=== PATIENT | male | born 1960 | race Caucasian/White ===

== ENCOUNTER 2018-01-17 13:37 | Observation (INO) ==
[2018-01-17] MEDS ORDERED: Naloxone 0.4 MG/ML INJ IVP PRN (14:07)
[2018-01-17] MEDS ORDERED: Acetaminophen 325 MG TABLET PO PRN (14:07)
[2018-01-17] MEDS ORDERED: *HR* Promethazine 25 MG/ML VIAL IVP PRN (14:07)
[2018-01-17] MEDS ORDERED: Ondansetron 4 MG/2 ML VIAL IVP PRN (14:07)
[2018-01-17] MEDS ORDERED: *HR* HYDROcodone/Acet 5/325 mg TABLET PO PRN (14:07)
[2018-01-17] MEDS ORDERED: Mag Hydrox/Al Hydrox/Simeth 30 ML UDC PO PRN (14:07)
--- NOTE | 2018-01-17 14:09 | Emergency Department Note ---
[facility]position [facility] Care Provider[facility] - Syncope HPI - General Chief Complaint: ED General Medical Stated Complaint: [facility] Time Seen by Provider: 01/17/18 13:43 Source: patient, EMS Limitations: no limitations Nursing Notes Reviewed: Yes Vital Signs Reviewed: Yes - History of Present Illness HPI Narrative: 57 year old male with PMH of CAD s/p 2 stents, HTN, COPD, and anxiety presents to the ED via EMS from the [place] for concern about CVA. He reports he was walking and began to feel dizzy and reported that his left hand was tingling. This episode lasted about 10 minutes and then resolved. He was evaluated at at the [place] and was hypotensive at 92/58. CT showed small lacunar infarcts of undeterminant age, so he was sent to [facility] for further evaluation. He denies fevers, chills, headache, vision changes, dysarthria, dysphagia, chest pain, palpitations, dyspnea, abdominal pain, weakness, numbness, tingling, or difficulty with gait. - Related Data Previous Rx's Medication Instructions Recorded Hydrocodone/Acetaminophen [[place] 1 tab PO Q4H PRN #15 tab 07/17/16 5-325 Tablet] Allergies Allergy/AdvReac Type Severity Reaction Status Date / Time Penicillins AdvReac Hives Verified 07/17/16 21:38 Past Medical History - Past Medical History Medical history: Reports: COPD, coronary artery disease, hypertension, myocardial infarction Surgical history: Reports: angioplasty/stent Psychiatric history: Reports: anxiety, bipolar, depression, PTSD - Social History Smoking Status: Current every day smoker Smokeless Tobacco Status: No Alcohol use: Reports: none Drug use: Reports: none Physical Exam - General Limitations: no limitations General appearance: alert, in no apparent distress Course Vital Signs Temperature 97.8 F 01/17/18 13:39 Pulse Rate 84 01/17/18 13:39 Respiratory Rate 17 01/17/18 13:39 Blood Pressure 136/82 01/17/18 13:39 O2 Sat by Pulse Oximetry 97 01/17/18 13:39 Temperature 97.8 F 01/17/18 13:39 Pulse Rate 84 01/17/18 13:39 Respiratory Rate 17 01/17/18 13:39 Blood Pressure 136/82 01/17/18 13:39 O2 Sat by Pulse Oximetry 97 01/17/18 13:39 Oxygen Delivery Oxygen Delivery Room Air
--- NOTE | 2018-01-17 14:20 | Emergency Department Note ---
Disposition Clinical Impression: Near syncope TIA (transient ischemic attack) Qualifiers: Qualified Code(s): G45.9 - Disposition: Admitted As Inpatient Neuro HPI - General Chief Complaint: ED General Medical Stated Complaint: [facility] Time Seen by Provider: 01/17/18 13:43 Source: patient, EMS Mode of arrival: EMS Limitations: no limitations Nursing Notes Reviewed: Yes Vital Signs Reviewed: Yes - History of Present Illness HPI Narrative: 57 year old male with PMH of CAD s/p 2 stents, HTN, COPD, and anxiety presents to the ED via EMS from the [place] for concern about CVA. He reports he was walking and began to feel dizzy and reported that his left hand was tingling. This episode lasted about 10 minutes and then resolved. He was evaluated at at the [place] and was hypotensive at 92/58. CT showed small lacunar infarcts of undeterminant age, so he was sent to [facility] for further evaluation. The patient states these lacunar infarcts have been there on previous images in the past, but he is unable to recall where or when those images were take. He denies fevers, chills, headache, vision changes, dysarthria, dysphagia, chest pain, palpitations, dyspnea, abdominal pain, weakness, numbness, tingling, or difficulty with gait. - Related Data Allergies/Adverse Reactions: Allergies Allergy/AdvReac Type Severity Reaction Status Date / Time Penicillins AdvReac Hives Verified 07/17/16 21:38 Review of Systems: As Per HPI Past Medical History - Past Medical History Medical history: Reports: COPD, coronary artery disease, hypertension, myocardial infarction Surgical history: Reports: angioplasty/stent Psychiatric history: Reports: anxiety, bipolar, depression, PTSD - Social History Smoking Status: Current every day smoker Smokeless Tobacco Status: No Alcohol use: Reports: none Drug use: Reports: none Physical Exam - General Limitations: no limitations General appearance: alert, in no apparent distress - Head Head exam: atraumatic - Eye Eye exam: Present: normal appearance, PERRL, EOMI - ENT ENT exam: mucous membranes moist - Chest Chest inspection: Present: normal inspection, symmetric chest wall rise - Respiratory Respiratory exam: Present: wheezes (bilaterally) - Cardiovascular Cardiovascular exam: Present: regular rate, normal rhythm, +S1, +S2 - Abdominal Exam Abdominal exam: Present: soft, Non-Tender, normal bowel sounds - Extremities Exam Extremities exam: Present: normal inspection, normal capillary refill. Absent: pedal edema - Neurological Exam Neurological exam: Present: alert, oriented X3, CN II-XII intact. Absent: motor sensory deficit - Skin Skin exam: Present: warm, dry, intact Course Vital Signs Temperature 97.8 F 01/17/18 13:39 Pulse Rate 84 01/17/18 13:39 Respiratory Rate 17 01/17/18 13:39 Blood Pressure 136/82 01/17/18 13:39 O2 Sat by Pulse Oximetry 97 01/17/18 13:39 Temperature 98.1 F 01/17/18 19:26 Pulse Rate 88 01/17/18 19:26 Respiratory Rate 17 01/17/18 19:26 Blood Pressure 133/74 01/17/18 19:26 O2 Sat by Pulse Oximetry 93 01/17/18 19:26 Oxygen Delivery Oxygen Delivery Room Air Neuro Symptoms/Deficit - MDM Narrative Medical decision making narrative: Labs reviewed from [place] are unremarkable - including CBC, CMP, Troponin. [facility]. ECG in ED shows NSR. CT from [place] shows no intracranial hemorrhage, but shows lacunar infarcts of undeterminant age. The patient's symptoms have resolved now. This episode was likely a TIA or near-syncopal episode. Will admit for further work-up including an MRI. Spoke with admitting hospitalist Dr. Sparrow who accepted the patient. - Lab Data Lab results reviewed: Yes I reviewed the patient's lab results. Lab results narrative: [facility] the [facility] are un[facility] - EKG Data EKG attestation: Yes I reviewed and interpreted this EKG. EKG shows normal: sinus rhythm, axis, intervals, QRS complexes, ST-T waves NIH Stroke Scale - Level of Consciousness LOC: Alert - LOC Questions LOC Questions: Answers both correctly - LOC Commands LOC Commands: Performs both correctly - Best Gaze Best Gaze: Normal - Visual Visual: No visual loss - Facial Palsy Facial Palsy: Minor asymmetry on smiling, flattened nasolabial fold - Motor Arms Motor Arm-Left: No drift for 10 seconds Motor Arm-Right: No drift for 10 seconds - Motor Legs Motor Leg-Left: No drift for 5 seconds Motor Leg-Right: No drift for 5 seconds - Limb Ataxia Limb Ataxia: Normal, No Ataxia - Sensory Sensory: Normal - Best Language Best Language: No aphasia - Dysarthria Dysarthria: Normal - Extinction and Inattention Extinction and Inattention: Normal - NIHSS Total Score NIHSS Total Score: 1 Attestation Statement - Attestation Attestation: I, Manuel Bach, examined this patient and my medical decision-making was reviewed with the AEROLOGIST/[place]/Advanced Practice Nurse/Resident Physician. I agree with the documented findings, disposition and treatment plan as described except to the extent set forth below. 57-year-old male presents emergency Department with concerns of possible TIA versus near syncopal episode. Patient states he was at the [place] when he suddenly became lightheaded, had tingling in the left upper extremity. His BP was checked and returned hypotensive at the [place]. Patient is now back to his baseline and feels significantly improved. Initial troponin negative. EKG showed normal sinus rhythm with a rate of 79 without evidence of STEMI. CT at the [place] showed lacunar infarcts of indeterminate age. Patient believes that these were present on previous exams. Patient will be admitted to hospital for further care and evaluation of possible TIA versus near syncopal event.
[2018-01-17] MEDS ORDERED: Fluticasone Propionate Nasal 50 MCG/SPRAY BOTTLE NS PRN (15:10)
--- NOTE | 2018-01-17 15:47 | Internal Med History&Physical ---
Date of Encounter: 01/17/18 Time of Encounter: 14:30 Assessment and Plan (1) TIA (transient ischemic attack) Current visit: Yes Status: Acute Will place the pt into Tele for observation His symptoms seems to be more like TIA..since his left hand tingling resolved now However since he does have age undetermined lacunar infarcts in CT of head, will get MRI of Brain in AM for further eval Not a candidate for tPA since his symptoms resolved quickly frequent neuro check for now cont home med ASA for now Cont Statin Lipitor 80mg check FLP In AM will check Carotid doppler and 2 D Echo in AM Qualifiers: Qualified Code(s): G45.9 - Transient cerebral ischemic attack, unspecified (2) HTN (hypertension) Current visit: Yes Status: Acute Stable BP cont home meds Qualifiers: Hypertension type: essential hypertension Qualified Code(s): I10 - Essential (primary) hypertension (3) CAD (coronary artery disease) Current visit: Yes Status: Chronic resumed all home meds Qualifiers: Coronary Disease-Associated Artery/Lesion type: [place] artery [place] vs. transplanted heart: [place] heart Associated angina: without angina Qualified Code(s): I25.10 - Atherosclerotic heart disease of [place] coronary artery without angina pectoris (4) HLD (hyperlipidemia) Current visit: Yes Status: Chronic on statin check FLP in AM Qualifiers: Hyperlipidemia type: unspecified Qualified Code(s): E78.5 - Hyperlipidemia , unspecified Internal Medicine - H&P: HPI Chief complaint: Left hand tingling Admitted From: Emergency Dept Plans for Post Hospital Care: Home History of present illness: Mr. Suero is a 57 year old male with PMH of CAD s/p 2 stents, HTN, COPD, and anxiety presents to the ED via EMS from the [place] for concern about CVA. According to the pt this morning suddenly he felt lightheadedness, dizzy and Left had weakness and tingling sensation which lasted for 10 mins. Pt went to an UC at [place] where he was found to have hypotension with BP 92/58. His CT of head showed small lacunar infarcts of undetermined age, so he was sent to [facility] for further evaluation. The patient states these lacunar infarcts have been there on previous images in the past, but he is unable to recall where or when those images were take. He denies fevers, chills, headache, vision changes and dysarthria. Past Med Surg Social Fam HX - Past Medical History Medical history: COPD, coronary artery disease, hypertension, myocardial infarction Psychiatric history: anxiety, bipolar, depression, PTSD - Past Surgical History Surgical History: angioplasty/stent - Social History Smoking Status: Current every day smoker Smokeless Tobacco Status: No Alcohol use: none Drug use: none - Additional Family History Additional family history: Family hsitory reviewed and non contribuitory to current problem. Internal Medicine - H&P: Meds ARIPiprazole [Abilify] 5 mg PO DAILY 01/17/18 [History] Acetaminophen [Non-Aspirin] 650 mg PO QID 01/17/18 [History] Albuterol Sulfate [Albuterol Inhaler] 2 puff IH Q4H 01/17/18 [History] Aspirin [Lo-Dose Aspirin EC] 81 mg PO DAILY 01/17/18 [History] Atenolol [Tenormin] 50 mg PO DAILY 01/17/18 [History] Atorvastatin Calcium 80 mg PO HS 01/17/18 [History] Cholecalciferol (D-3) [Vitamin D] 1,000 unit PO DAILY 01/17/18 [History] Fluticasone Propionate Nasal [Flonase] 1 spr NS HS PRN 01/17/18 [History] Folic Acid 2 mg PO DAILY 01/17/18 [History] GuaiFENesin Liq [Robitussin Liq] 200 mg PO Q6HR 01/17/18 [History] Ipratropium [Atrovent Inhaler] 2 puff IH Q4H 01/17/18 [History] Ketotifen Fumarate [Zaditor] 1 drop OP BID 01/17/18 [History] Loratadine [Allergy Relief] 10 mg PO DAILY 01/17/18 [History] Losartan Potassium [Cozaar] 50 mg PO DAILY 01/17/18 [History] Melatonin [Melatin] 9 mg PO HS 01/17/18 [History] Mometasone Furoate [Asmanex Hfa] 2 puff IH BID 01/17/18 [History] Olodaterol HCl [Striverdi Respimat] 2 puff IH DAILY 01/17/18 [History] Polyvinyl Alcohol [Artificial Tears] 1 drop OP QID 01/17/18 [History] Prazosin HCl [Minipress] 2 mg PO DAILY 01/17/18 [History] Pregabalin [Lyrica] 75 mg PO BID 01/17/18 [History] Sildenafil Citrate [Viagra] 50 mg PO DAILY 01/17/18 [History] Thiamine Mononitrate [Vitamin B-1] 100 mg PO DAILY 01/17/18 [History] Ubidecarenone [Coq10] 50 mg PO DAILY 01/17/18 [History] carBAMazepine [Tegretol] 200 mg PO BID 01/17/18 [History] 3 Allergy/AdvReac Type Severity Reaction Status Date / Time Penicillins AdvReac Hives Verified 07/17/16 21:38 All Systems PM: A 10-system review of systems was performed and is negative for pertinent findings except as documented above in the HPI. Review of systems: All the systems are reviewed everything is benign except the systems and symptoms I mentioned in the history of present illness - Constitutional Vitals: Temp Pulse Resp BP Pulse Ox 97.8 F 84 18 124/83 97 01/17/18 13:39 01/17/18 13:39 01/17/18 15:06 01/17/18 15:06 01/17/18 13:39 General appearance: Present: cooperative, A&O X 3, answers questions appropriately. Absent: no acute distress - Head Head exam: Present: atraumatic, normal inspection - Respiratory Respiratory exam: Present: decreased breath sounds. Absent: respiratory distress, rhonchi, wheezes - Cardiovascular Cardiovascular exam: Present: RRR, +S1, +S2. Absent: tachycardia - GI/Abdominal GI/Abdominal exam: Present: normal bowel sounds, soft. Absent: rebound, rigid, tenderness - Extremities Exam Extremities exam: Absent: calf tenderness, pedal edema, tenderness - Back Exam Back exam: Absent: CVA tenderness (L), CVA tenderness (R) - Neurological Exam Neurological exam: Present: alert, oriented X3 - Psychiatric Psychiatric exam: Present: normal affect, normal mood - Skin Skin exam: Absent: rash
[2018-01-17] MEDS: Nicotine 21 MG PATCH.TD24 TD SCH (17:45)
[2018-01-17] MEDS: Artificial Tears SOLN 15 ML BOTTLE OP SCH ×2 (18:47→20:27)
[2018-01-17] MEDS: Beclomethasone 80mcg MDI IH SCH (20:03)
[2018-01-17] MEDS: (Ketotifen Fumarate [Zaditor] 1 DROP) OP SCH (20:26)
[2018-01-17] MEDS: carBAMazepine 200 MG TABLET PO SCH (20:27)
[2018-01-17] MEDS: Pregabalin 75 MG CAPSULE PO SCH (20:27)
[2018-01-17] MEDS ORDERED: Melatonin 3 MG TABLET PO SCH (21:00)
[2018-01-18 04:36] LABS: Basophils % 0.2 %; Eosinophils # 0.1 K/mcL (0.0-0.6); Eosinophils % 0.7 %; Hematocrit 36.1 % (37.5-50.1); Hemoglobin 12.2 g/dL (12.9-16.9); Immature Granulocytes % 1.5 % (0-4); Immature Platelets 1.8 % (1.1-6.1); Lymphocytes # 2.5 K/mcL (0.6-4.6); Lymphocytes % 20.1 %; Mean Corpuscular HGB Conc 33.8 g/dL (31.6-35.5); Mean Corpuscular Hemoglobin 31.4 pg (28.0-33.3); Mean Corpuscular Volume 92.8 fL (83.0-100.0); Mean Platelet Volume 8.8 fL (9.4-12.4); Monocytes # 1.5 K/mcL (0.0-1.3); Neutrophils # 8.2 K/mcL (1.6-8.9); Nucleated Red Blood Cells 0.2 /100 WBC (0); Platelet Count 306 K/mcL (140-400); Red Blood Count 3.89 M/mcL (4.19-5.50); Red Cell Distribution Width 13.4 % (11.5-14.5); Segmented Neutrophils % 65.5 %
[2018-01-18 04:54] LABS: BUN/Creatinine Ratio 24 (6-26); Blood Urea Nitrogen 21 mg/dL (6-20); Calcium 9.4 mg/dL (8.6-10.3); Carbon Dioxide 26 mEq/L (23-29); Chloride 105 mEq/L (98-107); Chol/HDL Ratio 4.6 (0-4.9); Cholesterol 138 mg/dL (< 200); Glucose 125 mg/dL (70-105); HDL Cholesterol 30 mg/dL (40-59); LDL Cholesterol,Calculated 91 mg/dL (0-99); Osmolality,Calculated 286 (280-300); Potassium 4.1 mEq/L (3.5-5.1); Sodium 136 mEq/L (136-145); Triglycerides 84 mg/dL (< 150); eGFR For African Americans > 60 (> 60); eGFR For Non-African Americans > 60 (> 60)
[2018-01-18] MEDS: Beclomethasone 80mcg MDI IH SCH (07:53)
[2018-01-18] MEDS: carBAMazepine 200 MG TABLET PO SCH (08:44)
[2018-01-18] MEDS: Pregabalin 75 MG CAPSULE PO SCH (08:44)
[2018-01-18] MEDS: Nicotine 21 MG PATCH.TD24 TD SCH (08:46)
[2018-01-18] MEDS: (Ketotifen Fumarate [Zaditor] 1 DROP) OP SCH (08:47)
[2018-01-18] MEDS ORDERED: Folic Acid 1 MG TABLET PO SCH (09:00)
[2018-01-18] MEDS ORDERED: *HR* LORazepam 2 MG/ML VIAL IVP ONE (09:00)
[2018-01-18] MEDS ORDERED: Cholecalciferol (D-3) 1,000 UNIT TABLET PO SCH (09:00)
[2018-01-18] MEDS ORDERED: Thiamine (B-1) 100 MG TABLET PO SCH (09:00)
[2018-01-18] MEDS ORDERED: OLODATEROL HCL IH SCH (09:00)
[2018-01-18] MEDS ORDERED: ARIPiprazole 5 MG TABLET PO SCH (09:00)
[2018-01-18] MEDS ORDERED: Aspirin 81 MG TAB.CHEW PO SCH (09:00)
[2018-01-18] MEDS ORDERED: Loratadine 10 MG TABLET PO SCH (09:00)
[2018-01-18] MEDS ORDERED: (Ubidecarenone [Coq10] 50 MG) PO SCH (09:00)
[2018-01-18] MEDS: Artificial Tears SOLN 15 ML BOTTLE OP SCH ×2 (09:22→12:31)
[2018-01-18 11:32] VITALS: BP 148/98
--- NOTE | 2018-01-18 12:23 | Discharge Summary ---
Date of Encounter: 01/18/18 Time of Encounter: 12:16 - Discharge Diagnosis (1) TIA (transient ischemic attack) Priority: Primary Status: Acute Comments: Possible. Presented with left hand paresthesia that lasted approximately 10 minutes; resolved spontaneously without intervention. TX head CT with undetermined lacunar infarcts. Brain MRI nonacute, no evidence of previous infarcts. TTE with preserved EF, no PFO or cardiac source of emboli. Bilateral carotid Dopplers essentially normal. LDL 91. Continue aggressive risk factor modification. Smoking cessation advised. Increase home ASA to full dose. Recommend follow-up with neurologist cycle and patient will look into neurologist at [place]. Advised to follow-up with reimbursement auditor at [facility] the [place] does not offer neurology services. Qualifiers: Qualified Code(s): G45.9 - Transient cerebral ischemic attack, unspecified (2) HTN (hypertension) Priority: Primary Status: Acute Comments: per hx. BP initially elevated however improved with resuming home medications. Qualifiers: Hypertension type: essential hypertension Qualified Code(s): I10 - Essential (primary) hypertension (3) CAD (coronary artery disease) Priority: Secondary Status: Chronic Comments: per hx. Asymptomatic. Denied chest pain. Continue home ASA, BB, statin. Qualifiers: Coronary Disease-Associated Artery/Lesion type: [place] artery [place] vs. transplanted heart: [place] heart Associated angina: without angina Qualified Code(s): I25.10 - Atherosclerotic heart disease of [place] coronary artery without angina pectoris (4) HLD (hyperlipidemia) Priority: Secondary Status: Chronic Comments: LDL 92; cont home statin Qualifiers: Hyperlipidemia type: unspecified Qualified Code(s): E78.5 - Hyperlipidemia , unspecified Hospital course: Mr. Suero is a 57 year old male with past medical history CAD, hypertension, COPD and seizure disorder who presented to [facility] on 01/17 with complaints of left hand tingling. It was suspected that he suffered a TIA; workup was negative for CVA. Home aspirin was increased to full dose. He was discharged home in stable condition with outpatient follow-up. See assessment and plan for further details. Discharge discussed with: patient - Time Spent with Patient Total time spent providing and/or coordinating discharge services: Less than 30 minutes - Discharge Medications Prescriptions: Aspirin Enteric Coated [Aspirin EC] 325 mg PO DAILY #30 tablet. Home Medications: ARIPiprazole [Abilify] 5 mg PO DAILY 01/17/18 [History] Acetaminophen [Non-Aspirin] 650 mg PO QID 01/17/18 [History] Albuterol Sulfate [Albuterol Inhaler] 2 puff IH Q4H 01/17/18 [History] Atenolol [Tenormin] 50 mg PO DAILY 01/17/18 [History] Atorvastatin Calcium 80 mg PO HS 01/17/18 [History] Cholecalciferol (D-3) [Vitamin D] 1,000 unit PO DAILY 01/17/18 [History] Fluticasone Propionate Nasal [Flonase] 1 spr NS HS PRN 01/17/18 [History] Folic Acid 2 mg PO DAILY 01/17/18 [History] GuaiFENesin Liq [Robitussin Liq] 200 mg PO Q6HR 01/17/18 [History] Ipratropium [ATROVENT Inhaler] 2 puff IH Q4H 01/17/18 [History] Ketotifen Fumarate [Zaditor] 1 drop OP BID 01/17/18 [History] Loratadine [Allergy Relief] 10 mg PO DAILY 01/17/18 [History] Losartan Potassium [Cozaar] 50 mg PO DAILY 01/17/18 [History] Melatonin [Melatin] 9 mg PO HS 01/17/18 [History] Mometasone Furoate [Asmanex Hfa] 2 puff IH BID 01/17/18 [History] Olodaterol HCl [Striverdi Respimat] 2 puff IH DAILY 01/17/18 [History] Polyvinyl Alcohol [Artificial Tears] 1 drop OP QID 01/17/18 [History] Prazosin HCl [Minipress] 2 mg PO DAILY 01/17/18 [History] Pregabalin [Lyrica] 75 mg PO BID 01/17/18 [History] Sildenafil Citrate [Viagra] 50 mg PO DAILY 01/17/18 [History] Thiamine Mononitrate [Vitamin B-1] 100 mg PO DAILY 01/17/18 [History] Ubidecarenone [Coq10] 50 mg PO DAILY 01/17/18 [History] carBAMazepine [Tegretol] 200 mg PO BID 01/17/18 [History] Aspirin Enteric Coated [Aspirin EC] 325 mg PO DAILY #30 tablet. 01/18/18 [Rx] Allergies/Adverse Reactions: 3 Allergy/AdvReac Type Severity Reaction Status Date / Time Penicillins AdvReac Hives Verified 07/17/16 21:38 Date of admission: 01/17/18 14:29 [facility] care [facility]: [facility] Discharging clinician: Marlen Dewitt Anticipated date of discharge: 01/18/18 - Constitutional Vitals: Temp Pulse Resp BP Pulse Ox 98.2 F 95 20 148/98 97 01/18/18 11:32 01/18/18 11:32 01/18/18 11:32 01/18/18 11:32 01/18/18 11:32 General appearance: Present: cooperative, A&O X 3, answers questions appropriately. Absent: no acute distress - Head Head exam: Present: atraumatic, normocephalic - Eye Eye exam: Present: PERRL, conjuntiva pink, sclera anicteric Pupils: Present: PERRL - Neck Neck exam general surgery: Present: supple, trachea midline. Absent: lymphadenopathy - Respiratory Respiratory exam: Present: CTAB. Absent: accessory muscle use, rales, rhonchi, wheezes - Cardiovascular Cardiovascular exam: Present: RRR, +S1, +S2. Absent: diastolic murmur, gallop, rubs, systolic murmur - GI/Abdominal GI/Abdominal exam: Present: normal bowel sounds, soft, no peritoneal signs. Absent: distended, tenderness - Extremities Exam Extremities exam: Present: warm, radial pulses palpable and symmetrical. Absent : calf tenderness, cyanotic, pedal edema - Neurological Exam Neurological exam: Present: CN II-XII intact, oriented X3, no focal deficits. Absent: pronater drift, facial droop, speech deficit - Skin Skin exam: Present: dry, intact - Patient Status Disposition: Home, Self-Care Condition: Good Functional capacity at discharge: independent ambulation Overall status at discharge: patient is back to baseline - Discharge Instructions Instructions: Transient Ischemic Attack (DC), Aspirin (By mouth), How to Stop Smoking (DC) Follow Up With: [facility]Primary Care Provider] - (Call your primary care physician to make a follow-up appointment within 1 week. Recommend following up with neurology; if the [facility] does not have a neurologist and please ask primary care doctor for referral to neurologist at [facility].) - Diet and Activity Activity: increase activity as tolerated Diet: low fat, low cholesterol
--- NOTE | 2018-01-21 06:16 | Electrocardiograph Report ---
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
== END 2018-01-18 16:15 ==
LOC: EMEROO 13:37 → 3BNU 14:29 → INTOOBSV 14:29 → 3BNU 15:36
PROVIDERS: ADMIT Family Medicine; ATTEND Registered Nurse

== ENCOUNTER 2021-04-28 19:43 | Observation (INO) ==
[2021-04-28 20:15] LABS: Basophils # 0.1 K/mcL (0.0-0.2); Basophils % 1.2 %; Eosinophils # 0.2 K/mcL (0.0-0.6); Eosinophils % 1.9 %; Hematocrit 36.5 % (37.5-50.1); Hemoglobin 12.3 g/dL (12.9-16.9); Immature Granulocytes % 0.6 % (0-4); Lymphocytes # 2.6 K/mcL (0.6-4.6); Lymphocytes % 23.8 %; Mean Corpuscular HGB Conc 33.7 g/dL (31.6-35.5); Mean Corpuscular Hemoglobin 32.2 pg (28.0-33.3); Mean Corpuscular Volume 95.5 fL (83.0-100.0); Mean Platelet Volume 8.4 fL (9.4-12.4); Monocytes # 0.6 K/mcL (0.0-1.3); Monocytes % 5.1 %; Neutrophils # 7.3 K/mcL (1.6-8.9); Platelet Count 285 K/mcL (140-400); Red Blood Count 3.82 M/mcL (4.19-5.50); Red Cell Distribution Width 12.5 % (11.5-14.5); Segmented Neutrophils % 67.4 %; White Blood Count 10.9 K/mcL (4.3-11.1)
[2021-04-28 20:29] LABS: BUN/Creatinine Ratio 14 (6-26); Blood Urea Nitrogen 15 mg/dL (6-20); Calcium 9.9 mg/dL (8.6-10.3); Carbon Dioxide 25 mEq/L (23-29); Chloride 100 mEq/L (98-107); Glucose 139 mg/dL (70-105); Osmolality,Calculated 281 (280-300); Potassium 3.3 mEq/L (3.5-5.1); Sodium 134 mEq/L (136-145); eGFR For African Americans > 60 (> 60); eGFR For Non-African Americans > 60 (> 60)
[2021-04-28 20:30] LABS: Troponin I < 0.03 ng/mL (< 0.04)
[2021-04-28] MEDS ORDERED: Potassium Chloride Elixir 20 MEQ/15 ML UDC PO ONE (20:59)
[2021-04-28] MEDS ORDERED: Aspirin 325 MG TABLET PO ONE (21:14)
[2021-04-28] MEDS ORDERED: Ondansetron 4 MG/2 ML VIAL IVP PRN (21:37)
[2021-04-28] MEDS ORDERED: Naloxone 0.4 MG/ML INJ IVP PRN (21:37)
[2021-04-28] MEDS ORDERED: Morphine Sulfate 2 MG/ML SYRINGE IVP PRN (21:39)
[2021-04-28] MEDS ORDERED: Nitroglycerin 1 INCH/GM PACKET TP ONE (21:40)
[2021-04-29 02:17] LABS: Hematocrit 38.2 % (37.5-50.1); Hemoglobin 12.6 g/dL (12.9-16.9); Mean Platelet Volume 8.4 fL (9.4-12.4); Platelet Count 285 K/mcL (140-400); Red Blood Count 3.94 M/mcL (4.19-5.50); Red Cell Distribution Width 12.6 % (11.5-14.5); White Blood Count 10.6 K/mcL (4.3-11.1)
[2021-04-29 02:36] LABS: BUN/Creatinine Ratio 12 (6-26); Blood Urea Nitrogen 13 mg/dL (6-20); Calcium 9.9 mg/dL (8.6-10.3); Carbon Dioxide 25 mEq/L (23-29); Chloride 101 mEq/L (98-107); Glucose 120 mg/dL (70-105); Osmolality,Calculated 281 (280-300); Potassium 3.7 mEq/L (3.5-5.1); Sodium 135 mEq/L (136-145); eGFR For African Americans > 60 (> 60); eGFR For Non-African Americans > 60 (> 60)
[2021-04-29] MEDS ORDERED: Perflutren Lipid Microsphere 1.3 ML in 0.9 % Sodium Chloride 8.7 ML IVP PRN (03:59)
[2021-04-29] MEDS ORDERED: Acetaminophen 325 MG TABLET PO ONE (07:15)
[2021-04-29] MEDS ORDERED: 0.9 % Sodium Chloride 2,000 ML ONE (12:20)
[2021-04-29] MEDS ORDERED: Nitroglycerin 1,000 MCG/5 ML VIAL IV ONE (12:21)
[2021-04-29] MEDS ORDERED: *HR* Heparin 10,000 UNIT/10 ML VIAL ONE (12:21)
[2021-04-29] MEDS ORDERED: Heparin 1,000 UNITS/500 mL 500 ML ONE (12:21)
[2021-04-29] MEDS ORDERED: ISOVUE-370 200 ML INFUS..BTL ONE ×2 (12:21→13:48)
[2021-04-29] MEDS ORDERED: *HR* FentaNYL (PF) 100 MCG/2 ML VIAL ONE (13:11)
[2021-04-29] MEDS ORDERED: *HR* Midazolam HCl 2 MG/2 ML VIAL ONE ×2 (13:11→13:58)
[2021-04-29] MEDS ORDERED: *HR* Metoprolol 5 MG/5 ML VIAL IVP ONE (14:01)
[2021-04-29] MEDS ORDERED: Adenosine 90 MG/30 ML MLS IV ONE (14:31)
[2021-04-29] MEDS: Aspirin Enteric Coated 81 MG Tablet PO SCH (14:55)
[2021-04-29] MEDS ORDERED: Ipratropium 1 PUFF INHALER IH PRN (15:05)
[2021-04-29] MEDS ORDERED: Acetaminophen IV 500 MG/50 ML BAG IVPB ONE (17:04)
[2021-04-29] MEDS: Pregabalin 25 MG CAPSULE PO SCH (20:00)
[2021-04-29] MEDS: Pregabalin 75 MG CAPSULE PO SCH (20:00)
[2021-04-30 07:28] LABS: Hematocrit 36.4 % (37.5-50.1); Hemoglobin 12.1 g/dL (12.9-16.9); Mean Corpuscular HGB Conc 33.2 g/dL (31.6-35.5); Mean Corpuscular Hemoglobin 32.6 pg (28.0-33.3); Mean Corpuscular Volume 98.1 fL (83.0-100.0); Mean Platelet Volume 8.6 fL (9.4-12.4); Platelet Count 282 K/mcL (140-400); Red Blood Count 3.71 M/mcL (4.19-5.50); White Blood Count 9.6 K/mcL (4.3-11.1)
[2021-04-30 07:45] VITALS: BP 114/76
[2021-04-30 07:49] LABS: BUN/Creatinine Ratio 12 (6-26); Blood Urea Nitrogen 13 mg/dL (6-20); Calcium 9.2 mg/dL (8.6-10.3); Carbon Dioxide 25 mEq/L (23-29); Chloride 104 mEq/L (98-107); Glucose 118 mg/dL (70-105); Osmolality,Calculated 283 (280-300); Sodium 136 mEq/L (136-145); eGFR For African Americans > 60 (> 60); eGFR For Non-African Americans > 60 (> 60)
[2021-04-30] MEDS ORDERED: ARIPiprazole 5 MG TABLET PO SCH (09:00)
[2021-04-30] MEDS: Aspirin Enteric Coated 81 MG Tablet PO SCH (09:46)
[2021-04-30] MEDS: Pregabalin 25 MG CAPSULE PO SCH (09:47)
[2021-04-30] MEDS: Pregabalin 75 MG CAPSULE PO SCH (09:47)
[2021-04-30] MEDS ORDERED: MIST INHAL IH SCH (10:00)
[2021-04-30] MEDS ORDERED: OLODATEROL HCL IH SCH (10:00)
== END 2021-04-30 14:32 | disposition home or self-care (01) ==
LOC: EMEROOARM 19:43 → 3BNU 19:43 → SUATTDRO 21:27 → 3BNU 22:37
PROVIDERS: ADMIT Internal Medicine; ATTEND Registered Nurse

== ENCOUNTER 2021-11-23 07:46 | Inpatient (IN) ==
[2021-11-23] MEDS ORDERED: Isovue-370 500 ML BOTTLE IVP ONE (07:56)
[2021-11-23] MEDS ORDERED: Morphine Sulfate 2 MG/ML SYRINGE IVP ONE ×2 (07:57→10:21)
[2021-11-23 08:17] LABS: Basophils # 0.1 K/mcL (0.0-0.2); Basophils % 0.5 %; Eosinophils % 0.2 %; Hematocrit 41.7 % (37.5-50.1); Hemoglobin 14.5 g/dL (12.9-16.9); Immature Granulocytes % 0.7 % (0-4); Lymphocytes # 1.5 K/mcL (0.6-4.6); Lymphocytes % 9.8 %; Mean Corpuscular HGB Conc 34.8 g/dL (31.6-35.5); Mean Corpuscular Volume 92.1 fL (83.0-100.0); Monocytes # 1.3 K/mcL (0.0-1.3); Monocytes % 9.1 %; Neutrophils # 11.8 K/mcL (1.6-8.9); Platelet Count 222 K/mcL (140-400); Red Blood Count 4.53 M/mcL (4.19-5.50); Red Cell Distribution Width 12.8 % (11.5-14.5); Segmented Neutrophils % 79.7 %; White Blood Count 14.8 K/mcL (4.3-11.1)
[2021-11-23 08:24] LABS: Prothrombin Time 11.3 Seconds (9.4-12.1)
[2021-11-23 08:26] LABS: Activated Partial Thrombo Time 32.5 Seconds (26.0-36.0)
[2021-11-23 08:50] LABS: Alanine Aminotransferase 45 Units/L (7-52); Albumin 3.7 g/dL (3.5-5.7); Alkaline Phosphatase 76 Units/L (34-104); Aspartate Amino Transferase 70 Units/L (13-39); BUN/Creatinine Ratio 10 (6-26); Bilirubin,Direct 0.6 mg/dL (0.0-0.2); Bilirubin,Indirect 1.1 mg/dL (0.0-1.0); Bilirubin,Total 1.7 mg/dL (0.3-1.0); Blood Urea Nitrogen 17 mg/dL (6-20); Calcium 9.3 mg/dL (8.6-10.3); Carbon Dioxide 17 mEq/L (23-29); Chloride 93 mEq/L (98-107); Globulin 3.8 g/dL (2.4-3.5); Glucose 108 mg/dL (70-105); Lipase > 1800 Units/L (11-82); Osmolality,Calculated 260 (280-300); Potassium 4.8 mEq/L (3.5-5.1); Sodium 124 mEq/L (136-145); Total Protein 7.5 g/dL (6.4-8.9); Troponin I < 0.03 ng/mL (< 0.04); eGFR For African Americans 52 (> 60); eGFR For Non-African Americans 43 (> 60)
[2021-11-23] MEDS ORDERED: Ipratropium/Albuterol Neb 3 ML IH ONE (10:21)
[2021-11-23] MEDS ORDERED: Naloxone 0.4 MG/ML INJ IVP PRN (10:35)
[2021-11-23] MEDS ORDERED: Ondansetron ODT 4 MG TAB.RAPDIS SL PRN (10:35)
[2021-11-23 10:56] LABS: Chol/HDL Ratio 1.7 (0-4.9); Cholesterol 91 mg/dL (< 200); HDL Cholesterol 55 mg/dL (40-59); LDL Cholesterol,Calculated 21 mg/dL (< 100); Triglycerides 73 mg/dL (< 150)
[2021-11-23] MEDS: 0.9 % Sodium Chloride 1,000 ML IV ONE (11:48)
[2021-11-23] MEDS: Nicotine 21 MG PATCH.TD24 TD SCH (14:19)
[2021-11-23] MEDS: *HR* Heparin 5,000 UNIT/ML VIAL SQ SCH ×2 (14:25→22:00)
[2021-11-23] MEDS: Ipratropium 1 PUFF INHALER IH PRN ×2 (15:58→20:44)
[2021-11-23] MEDS ORDERED: traZODone 50 MG TABLET PO PRN (16:30)
[2021-11-23] MEDS ORDERED: Fluticasone Propionate Nasal 50 MCG/SPRAY BOTTLE NS PRN (16:30)
[2021-11-23] MEDS: 0.9 % Sodium Chloride 1,000 ML IVC SCH (16:31)
[2021-11-23] MEDS: Morphine Sulfate 2 MG/ML SYRINGE IVP PRN ×2 (17:05→23:20)
[2021-11-23] MEDS: Pregabalin 25 MG CAPSULE PO SCH (20:34)
[2021-11-23] MEDS: Melatonin 3 MG TABLET PO SCH (20:34)
[2021-11-23] MEDS: Pregabalin 75 MG CAPSULE PO SCH (20:34)
[2021-11-23] MEDS: Thiamine (B-1) 100 MG TABLET PO SCH (20:35)
[2021-11-23] MEDS: carBAMazepine 200 MG TABLET PO SCH (20:35)
[2021-11-23] MEDS: atenoloL 25 MG TABLET PO SCH (20:35)
[2021-11-24] MEDS: Ipratropium 1 PUFF INHALER IH PRN ×2 (03:53→15:29)
[2021-11-24] MEDS: *HR* Heparin 5,000 UNIT/ML VIAL SQ SCH ×3 (05:13→19:51)
[2021-11-24] MEDS: 0.9 % Sodium Chloride 1,000 ML IVC SCH ×2 (05:37→17:34)
[2021-11-24] MEDS: Morphine Sulfate 2 MG/ML SYRINGE IVP PRN (05:37)
[2021-11-24 05:49] LABS: Basophils # 0.1 K/mcL (0.0-0.2); Basophils % 0.4 %; Eosinophils # 0.1 K/mcL (0.0-0.6); Eosinophils % 0.3 %; Hematocrit 39.2 % (37.5-50.1); Hemoglobin 13.6 g/dL (12.9-16.9); Immature Granulocytes % 0.8 % (0-4); Mean Corpuscular HGB Conc 34.7 g/dL (31.6-35.5); Mean Corpuscular Hemoglobin 32.9 pg (28.0-33.3); Mean Corpuscular Volume 94.7 fL (83.0-100.0); Mean Platelet Volume 9.6 fL (9.4-12.4); Monocytes # 1.4 K/mcL (0.0-1.3); Monocytes % 6.5 %; Neutrophils # 17.9 K/mcL (1.6-8.9); Platelet Count 203 K/mcL (140-400); Red Blood Count 4.14 M/mcL (4.19-5.50); Red Cell Distribution Width 13.2 % (11.5-14.5); White Blood Count 21.6 K/mcL (4.3-11.1)
[2021-11-24 06:12] LABS: Calcium 8.5 mg/dL (8.6-10.3); Potassium 4.8 mEq/L (3.5-5.1)
[2021-11-24] MEDS: ARIPiprazole 10 MG TABLET PO SCH (08:17)
[2021-11-24] MEDS: Loratadine 10 MG TABLET PO SCH (08:19)
[2021-11-24] MEDS: Isosorbide MONOnitrate (24 HR) 30 MG TAB.ER.24H PO SCH (08:19)
[2021-11-24] MEDS: Aspirin Enteric Coated 81 MG Tablet PO SCH (08:21)
[2021-11-24] MEDS: atenoloL 25 MG TABLET PO SCH ×2 (08:21→19:50)
[2021-11-24] MEDS: Cholecalciferol (D-3) 1,000 UNIT (25MCG) TABLET PO SCH (08:22)
[2021-11-24] MEDS: Thiamine (B-1) 100 MG TABLET PO SCH ×2 (08:23→19:50)
[2021-11-24] MEDS: Pregabalin 25 MG CAPSULE PO SCH ×2 (08:23→19:50)
[2021-11-24] MEDS: Pregabalin 75 MG CAPSULE PO SCH ×2 (08:23→19:50)
[2021-11-24] MEDS: Nicotine 21 MG PATCH.TD24 TD SCH (08:23)
[2021-11-24] MEDS ORDERED: OLODATEROL IH SCH (09:00)
[2021-11-24] MEDS ORDERED: atenoloL 50 MG TABLET PO SCH (09:00)
[2021-11-24] MEDS ORDERED: Morphine Sulfate 2 MG/ML SYRINGE IVP PRN (09:41)
[2021-11-24] MEDS: carBAMazepine 200 MG TABLET PO SCH ×2 (10:02→19:50)
[2021-11-24] MEDS: Melatonin 3 MG TABLET PO SCH (19:50)
[2021-11-24] MEDS: Budesonide/Formoterol 160/4.5 1 PUFF INH IH SCH (20:03)
[2021-11-24] MEDS ORDERED: *HR* Dextrose 50 % in Water (Syg) 50 ML SYRINGE IVP PRN (23:54)
[2021-11-24] MEDS ORDERED: D5% in Water 1,000 ML IVC PRN (23:54)
[2021-11-24] MEDS ORDERED: Dextrose Gel 15 GM/37.5 ML TUBE PO PRN ×2 (23:54)
[2021-11-25] MEDS: 0.9 % Sodium Chloride 1,000 ML IVC SCH (00:14)
[2021-11-25] MEDS ORDERED: Acetaminophen IV 500 MG/50 ML BAG IVPB ONE (03:24)
[2021-11-25 03:43] LABS: Calcium 8.1 mg/dL (8.6-10.3); Potassium 5.3 mEq/L (3.5-5.1)
[2021-11-25] MEDS: *HR* Heparin 5,000 UNIT/ML VIAL SQ SCH ×3 (03:59→23:37)
[2021-11-25] MEDS: Ipratropium 1 PUFF INHALER IH PRN (05:09)
[2021-11-25] MEDS ORDERED: *HR* LORazepam 2 MG/ML VIAL IVP ONE (05:18)
[2021-11-25 06:34] LABS: Bacteria,Urine Few per hpf (None-Few); Bilirubin,Urine Small (Negative); Blood,Urine Negative (Negative); Clarity,Urine Turbid (Clear); Color,Urine Orange (Yellow); Glucose,Urine (UA) Normal (Normal); Hyaline Casts,Urine Moderate per lpf (None Seen); Ketones,Urine Negative (Negative); Leukocyte Esterase,Urine Negative (Negative); Nitrite,Urine Negative (Negative); PH,Urine 5.5 pH Units (5.0-8.0); Protein,Urine 70 mg/dL (Neg-Trace); Specific Gravity,Urine > 1.030 (1.010-1.025); Squamous Epithelial Cell,Urine Few per hpf (None-Few)
[2021-11-25] MEDS ORDERED: 0.9 % Sodium Chloride 1,000 ML IVC ONE (08:02)
[2021-11-25] MEDS: Budesonide/Formoterol 160/4.5 1 PUFF INH IH SCH ×2 (08:22→20:54)
[2021-11-25] MEDS: ARIPiprazole 10 MG TABLET PO SCH (08:38)
[2021-11-25] MEDS: atenoloL 25 MG TABLET PO SCH (08:39)
[2021-11-25] MEDS: Pregabalin 25 MG CAPSULE PO SCH (08:39)
[2021-11-25] MEDS: Isosorbide MONOnitrate (24 HR) 30 MG TAB.ER.24H PO SCH (08:39)
[2021-11-25] MEDS: Loratadine 10 MG TABLET PO SCH (08:39)
[2021-11-25] MEDS: Thiamine (B-1) 100 MG TABLET PO SCH ×2 (08:39→19:51)
[2021-11-25] MEDS: Cholecalciferol (D-3) 1,000 UNIT (25MCG) TABLET PO SCH (08:39)
[2021-11-25] MEDS: Aspirin Enteric Coated 81 MG Tablet PO SCH (08:39)
[2021-11-25] MEDS: carBAMazepine 200 MG TABLET PO SCH (08:45)
[2021-11-25 09:19] LABS: Calcium 8.4 mg/dL (8.6-10.3); Magnesium 1.9 mg/dL (1.6-2.6); Phosphorous 4.9 mg/dL (2.7-4.5); Potassium 5.9 mEq/L (3.5-5.1)
[2021-11-25 09:37] LABS: Adenovirus Not Detected (Not Detect); Bordetella Pertussis Not Detected (Not Detect); Chlamydophila pneumoniae Not Detected (Not Detect); Coronavirus 229E Not Detected (Not Detect); Coronavirus HKU1 Not Detected (Not Detect); Coronavirus NL63 Not Detected (Not Detect); Coronavirus OC43 Not Detected (Not Detect); Human Metapneumovirus Not Detected (Not Detect); Human Rhinovirus/Enterovirus Not Detected (Not Detect); Influenza A Subtype 2009 H1 Not Detected (Not Detect); Influenza B Not Detected (Not Detect); Mycoplasma pneumoniae Not Detected (Not Detect); Parainfluenza Virus 1 Not Detected (Not Detect); Parainfluenza Virus 2 Not Detected (Not Detect); Parainfluenza Virus 3 Not Detected (Not Detect); Parainfluenza Virus 4 Not Detected (Not Detect); Respiratory Syncytial Virus Not Detected (Not Detect); SARS-CoV-2 Not Detected (Not Detect)
[2021-11-25] MEDS ORDERED: SODIUM ZIRCONIUM CYCLOSILICATE 5 GM POWD.PACK PO STA (09:38)
[2021-11-25] MEDS ORDERED: Piperacillin/Tazobactam 3.375 GM in 0.9 % Sodium Chloride Mini Bag 100 ML IVPB STA (09:39)
[2021-11-25] MEDS: Nicotine 21 MG PATCH.TD24 TD SCH (10:14)
[2021-11-25] MEDS: 0.9 % Sodium Chloride 1,000 ML IV ONE (10:28)
[2021-11-25] MEDS: Acetaminophen 325 MG TABLET PO PRN (10:39)
[2021-11-25 10:51] LABS: Basophils # 0.1 K/mcL (0.0-0.2); Basophils % 0.4 %; Eosinophils # 0.1 K/mcL (0.0-0.6); Eosinophils % 0.2 %; Hemoglobin 12.4 g/dL (12.9-16.9); Immature Granulocytes % 1.4 % (0-4); Lymphocytes # 1.5 K/mcL (0.6-4.6); Lymphocytes % 7.2 %; Mean Corpuscular HGB Conc 31.8 g/dL (31.6-35.5); Mean Corpuscular Hemoglobin 32.5 pg (28.0-33.3); Mean Corpuscular Volume 102.1 fL (83.0-100.0); Mean Platelet Volume 9.7 fL (9.4-12.4); Monocytes # 2.4 K/mcL (0.0-1.3); Platelet Count 216 K/mcL (140-400); Red Blood Count 3.82 M/mcL (4.19-5.50); Red Cell Distribution Width 14.1 % (11.5-14.5); Segmented Neutrophils % 78.8 %; White Blood Count 20.3 K/mcL (4.3-11.1)
[2021-11-25 13:31] LABS: ABG Base Excess -10 mEq/L (-2 to 3); ABG HCO3 21 mEq/L (21-27); ABG Oxygen Saturation 83 % (95-98); ABG PCO2 66 mmHg (35-45); ABG PH 7.11 pH Units (7.32-7.45); ABG PO2 64 mmHg (85-104); ABG TCO2 23 mEq/L (20-26)
[2021-11-25] MEDS ORDERED: Sodium Bicarbonate 50 MEQ/50 ML VIAL IVP ONE ×3 (13:39→16:00)
[2021-11-25 14:37] LABS: Basophils # 0.1 K/mcL (0.0-0.2); Basophils % 0.3 %; Eosinophils % 0.1 %; Hematocrit 37.7 % (37.5-50.1); Hemoglobin 11.9 g/dL (12.9-16.9); Immature Granulocytes % 0.8 % (0-4); Lymphocytes # 0.8 K/mcL (0.6-4.6); Lymphocytes % 4.5 %; Mean Corpuscular HGB Conc 31.6 g/dL (31.6-35.5); Mean Corpuscular Hemoglobin 33.1 pg (28.0-33.3); Mean Platelet Volume 9.4 fL (9.4-12.4); Monocytes # 1.8 K/mcL (0.0-1.3); Monocytes % 10.3 %; Neutrophils # 14.5 K/mcL (1.6-8.9); Platelet Count 188 K/mcL (140-400); Red Blood Count 3.59 M/mcL (4.19-5.50); White Blood Count 17.3 K/mcL (4.3-11.1)
[2021-11-25 14:40] LABS: VBG Ionized Calcium 1.05 mmol/L (1.15-1.35)
[2021-11-25 14:47] LABS: INR 1.1; Prothrombin Time 11.7 Seconds (9.4-12.1)
[2021-11-25 15:05] LABS: Alanine Aminotransferase 37 Units/L (7-52); Albumin 3.3 g/dL (3.5-5.7); Albumin/Globulin Ratio 0.9 (1.1-2.2); Alkaline Phosphatase 60 Units/L (34-104); Aspartate Amino Transferase 117 Units/L (13-39); Bilirubin,Direct 0.3 mg/dL (0.0-0.2); Bilirubin,Indirect 0.7 mg/dL (0.0-1.0); C-Reactive Protein > 300 mg/L (Less than 10); Globulin 3.6 g/dL (2.4-3.5); Lactate Dehydrogenase 257 Units/L (140-271); Total Protein 6.9 g/dL (6.4-8.9)
[2021-11-25] MEDS ORDERED: 0.9 % Sodium Chloride 1,000 ML ONE (15:47)
[2021-11-25] MEDS ORDERED: Meropenem 1,000 MG in Water for inj. (sterile) 20 ML IVP SCH (16:00)
[2021-11-25] MEDS ORDERED: Norepinephrine 4 MG/254 ML IV.SOLN IVC SCH (16:00)
[2021-11-25] MEDS: Norepinephrine 4 MG/254 ML IV.SOLN IVC SCH ×2 (16:00→19:54)
[2021-11-25] MEDS: FentaNYL (PF) 1,000 MCG/100 ML IV.SOLN IVC SCH ×2 (16:13→23:38)
[2021-11-25] MEDS ORDERED: *HR* Midazolam HCl 5 MG/5 ML VIAL IVP ONE (16:15)
[2021-11-25] MEDS ORDERED: *HR* Rocuronium Bromide 50 MG/5 ML VIAL IVP ONE (16:15)
[2021-11-25] MEDS ORDERED: *HR* Etomidate 20 MG/10 ML AMPUL IVP ONE (16:15)
[2021-11-25] MEDS: Midazolam HCl 50 MG/100 ML IV.SOLN IVC SCH ×2 (16:30→23:36)
[2021-11-25] MEDS ORDERED: Artificial Tears SOLN 15 ML BOTTLE BOTH EYES PRN (16:59)
[2021-11-25 17:33] LABS: Basophils % 0.3 %; Eosinophils % 0.1 %; Hemoglobin 10.3 g/dL (12.9-16.9); Immature Granulocytes % 1.1 % (0-4); Lymphocytes # 0.7 K/mcL (0.6-4.6); Lymphocytes % 5.2 %; Mean Corpuscular HGB Conc 31.2 g/dL (31.6-35.5); Mean Corpuscular Hemoglobin 32.2 pg (28.0-33.3); Mean Corpuscular Volume 103.1 fL (83.0-100.0); Mean Platelet Volume 10.1 fL (9.4-12.4); Monocytes # 1.4 K/mcL (0.0-1.3); Monocytes % 10.1 %; Neutrophils # 11.7 K/mcL (1.6-8.9); Platelet Count 182 K/mcL (140-400); Red Cell Distribution Width 14.1 % (11.5-14.5); Segmented Neutrophils % 83.2 %; White Blood Count 14.1 K/mcL (4.3-11.1)
[2021-11-25 17:51] LABS: Albumin 3.3 g/dL (3.5-5.7); Bilirubin,Direct 0.6 mg/dL (0.0-0.2); Bilirubin,Indirect 0.4 mg/dL (0.0-1.0); Calcium 7.5 mg/dL (8.6-10.3); Globulin 3.3 g/dL (2.4-3.5); Magnesium 1.8 mg/dL (1.6-2.6); Phosphorous 6.7 mg/dL (2.7-4.5); Potassium 5.9 mEq/L (3.5-5.1); Total Protein 6.6 g/dL (6.4-8.9)
[2021-11-25 17:53] LABS: ABG Base Excess -7 mEq/L (-2 to 3); ABG HCO3 18 mEq/L (21-27); ABG Oxygen Saturation 100 % (95-98); ABG PCO2 36 mmHg (35-45); ABG PH 7.32 pH Units (7.32-7.45); ABG PO2 406 mmHg (85-104); ABG TCO2 20 mEq/L (20-26); Blood Gas Modality ASSIST CONTROL; Blood Gas VT 500 cc
[2021-11-25 18:00] LABS: VBG Ionized Calcium 0.95 mmol/L (1.15-1.35)
[2021-11-25] MEDS ORDERED: Piperacillin/Tazobactam 3.375 GM in 0.9 % Sodium Chloride Mini Bag 100 ML IVPB SCH (18:00)
[2021-11-25 18:34] LABS: Sodium, Urine 60.6 mEq/L
[2021-11-25] MEDS: Meropenem 1,000 MG in Water for inj. (sterile) 20 ML IVP SCH (19:02)
[2021-11-25 20:52] LABS: Albumin 2.7 g/dL (3.5-5.7); Albumin/Globulin Ratio 1.1 (1.1-2.2); Bilirubin,Total 1.2 mg/dL (0.3-1.0); Calcium 6.1 mg/dL (8.6-10.3); Globulin 2.5 g/dL (2.4-3.5); Potassium 4.1 mEq/L (3.5-5.1); Total Protein 5.2 g/dL (6.4-8.9)
[2021-11-25] MEDS ORDERED: Norepinephrine 4 MG/254 ML in 0.9% Sodium Chloride IVC ONE (22:16)
[2021-11-26 00:30] LABS: ABG Base Excess -8 mEq/L (-2 to 3); ABG HCO3 16 mEq/L (21-27); ABG Oxygen Saturation 98 % (95-98); ABG PCO2 28 mmHg (35-45); ABG PH 7.36 pH Units (7.32-7.45); ABG PO2 100 mmHg (85-104); ABG TCO2 17 mEq/L (20-26); Blood Gas VT 500 cc
[2021-11-26] MEDS: Norepinephrine 4 MG/254 ML IV.SOLN IVC SCH (01:00)
[2021-11-26] MEDS: Artificial Tears SOLN 15 ML BOTTLE BOTH EYES SCH ×8 (01:04→23:51)
[2021-11-26] MEDS: Sodium Bicarbonate 150 MEQ in D5% in Water 1,000 ML IVC SCH ×2 (01:11→17:40)
[2021-11-26] MEDS: FentaNYL (PF) 1,000 MCG/100 ML IV.SOLN IVC SCH ×4 (01:30→23:51)
[2021-11-26 04:12] LABS: ABG Base Excess -5 mEq/L (-2 to 3); ABG HCO3 19 mEq/L (21-27); ABG Oxygen Saturation 95 % (95-98); ABG PCO2 29 mmHg (35-45); ABG PH 7.42 pH Units (7.32-7.45); ABG PO2 71 mmHg (85-104); ABG TCO2 19 mEq/L (20-26); Blood Gas VT 500 cc
[2021-11-26] MEDS: *HR* Heparin 5,000 UNIT/ML VIAL SQ SCH ×3 (05:24→21:38)
[2021-11-26] MEDS: Meropenem 1,000 MG in Water for inj. (sterile) 20 ML IVP SCH ×2 (05:24→14:38)
[2021-11-26 06:40] LABS: VBG Ionized Calcium 0.96 mmol/L (1.15-1.35)
[2021-11-26 07:15] LABS: Basophils # 0.1 K/mcL (0.0-0.2); Basophils % 0.4 %; Eosinophils # 0.1 K/mcL (0.0-0.6); Eosinophils % 0.7 %; Hematocrit 31.3 % (37.5-50.1); Hemoglobin 10.6 g/dL (12.9-16.9); Immature Granulocytes % 0.7 % (0-4); Lymphocytes # 1.2 K/mcL (0.6-4.6); Lymphocytes % 9.9 %; Mean Corpuscular HGB Conc 33.9 g/dL (31.6-35.5); Mean Corpuscular Hemoglobin 33.5 pg (28.0-33.3); Mean Corpuscular Volume 99.1 fL (83.0-100.0); Monocytes # 1.2 K/mcL (0.0-1.3); Monocytes % 9.7 %; Neutrophils # 9.4 K/mcL (1.6-8.9); Nucleated Red Blood Cells 0.3 /100 WBC (0); Platelet Count 200 K/mcL (140-400); Red Blood Count 3.16 M/mcL (4.19-5.50); Red Cell Distribution Width 13.9 % (11.5-14.5); Segmented Neutrophils % 78.6 %
[2021-11-26] MEDS: Chlorhexidine Rinse 15 ML MOUTHWASH MM SCH ×3 (07:17→21:38)
[2021-11-26] MEDS: Nystatin POWDER 30 GM BOTTLE TP SCH ×3 (07:17→21:39)
[2021-11-26 07:30] LABS: Lactate Dehydrogenase 233 Units/L (140-271)
[2021-11-26 07:31] LABS: Albumin 3.1 g/dL (3.5-5.7); Bilirubin,Direct 1.2 mg/dL (0.0-0.2); Bilirubin,Indirect 0.6 mg/dL (0.0-1.0); Bilirubin,Total 1.8 mg/dL (0.3-1.0); Calcium 7.7 mg/dL (8.6-10.3); Magnesium 1.8 mg/dL (1.6-2.6); Phosphorous 3.5 mg/dL (2.7-4.5); Potassium 4.4 mEq/L (3.5-5.1); Total Protein 6.3 g/dL (6.4-8.9)
[2021-11-26 07:32] LABS: Globulin 3.2 g/dL (2.4-3.5)
[2021-11-26 07:35] LABS: Prothrombin Time 11.5 Seconds (9.4-12.1)
[2021-11-26] MEDS: Thiamine (B-1) 100 MG TABLET PO SCH ×2 (07:48→21:38)
[2021-11-26] MEDS: Cholecalciferol (D-3) 1,000 UNIT (25MCG) TABLET PO SCH (07:48)
[2021-11-26] MEDS: Pantoprazole 40 MG VIAL IVP SCH (07:48)
[2021-11-26] MEDS: ARIPiprazole 10 MG TABLET GTUBE SCH (07:48)
[2021-11-26] MEDS: Aspirin Enteric Coated 81 MG Tablet PO SCH (07:49)
[2021-11-26] MEDS: Loratadine 10 MG TABLET PO SCH (07:49)
[2021-11-26] MEDS: Acetaminophen 325 MG TABLET PO PRN (07:49)
[2021-11-26] MEDS: Midazolam HCl 50 MG/100 ML IV.SOLN IVC SCH ×3 (07:49→19:01)
[2021-11-26] MEDS: Nicotine 21 MG PATCH.TD24 TD SCH (07:50)
[2021-11-26] MEDS: Budesonide/Formoterol 160/4.5 1 PUFF INH IH SCH ×2 (08:08→19:38)
[2021-11-26] MEDS ORDERED: Ipratropium/Albuterol Neb 3 ML IH SCH ×2 (08:45→16:00)
[2021-11-26 09:51] LABS: C-Reactive Protein > 300 mg/L (Less than 10)
[2021-11-26] MEDS ORDERED: Albuterol 2.5 MG/3 ML NEBULIZER IH PRN (11:47)
[2021-11-26] MEDS: Ipratropium/Albuterol Neb 3 ML IH SCH ×4 (15:15→23:34)
[2021-11-26 17:43] LABS: Albumin 2.7 g/dL (3.5-5.7); Albumin/Globulin Ratio 0.9 (1.1-2.2); Bilirubin,Total 1.8 mg/dL (0.3-1.0); Calcium 7.2 mg/dL (8.6-10.3); Potassium 3.5 mEq/L (3.5-5.1); Total Protein 5.7 g/dL (6.4-8.9)
[2021-11-26 22:32] LABS: Albumin 2.9 g/dL (3.5-5.7); Albumin/Globulin Ratio 0.9 (1.1-2.2); Calcium 7.6 mg/dL (8.6-10.3); Globulin 3.3 g/dL (2.4-3.5); Potassium 3.7 mEq/L (3.5-5.1); Total Protein 6.2 g/dL (6.4-8.9)
[2021-11-27] MEDS: Midazolam HCl 50 MG/100 ML IV.SOLN IVC SCH ×3 (00:51→13:53)
[2021-11-27] MEDS: Ipratropium/Albuterol Neb 3 ML IH SCH ×6 (03:05→23:32)
[2021-11-27] MEDS: Meropenem 1,000 MG in Water for inj. (sterile) 20 ML IVP SCH ×2 (04:06→14:01)
[2021-11-27 04:07] LABS: ABG Base Excess 4 mEq/L (-2 to 3); ABG HCO3 28 mEq/L (21-27); ABG Oxygen Saturation 93 % (95-98); ABG PCO2 41 mmHg (35-45); ABG PH 7.44 pH Units (7.32-7.45); ABG PO2 64 mmHg (85-104); ABG TCO2 29 mEq/L (20-26); Blood Gas Modality AF; Blood Gas VT 500 cc
[2021-11-27] MEDS: Artificial Tears SOLN 15 ML BOTTLE BOTH EYES SCH ×6 (04:07→23:44)
[2021-11-27 04:24] LABS: VBG Ionized Calcium 0.98 mmol/L (1.15-1.35)
[2021-11-27 04:46] LABS: Basophils # 0.1 K/mcL (0.0-0.2); Basophils % 0.4 %; Eosinophils # 0.1 K/mcL (0.0-0.6); Eosinophils % 0.8 %; Hematocrit 31.5 % (37.5-50.1); Hemoglobin 10.6 g/dL (12.9-16.9); Immature Granulocytes % 1.2 % (0-4); Lymphocytes # 1.1 K/mcL (0.6-4.6); Mean Corpuscular HGB Conc 33.7 g/dL (31.6-35.5); Mean Corpuscular Hemoglobin 31.9 pg (28.0-33.3); Mean Corpuscular Volume 94.9 fL (83.0-100.0); Monocytes # 1.3 K/mcL (0.0-1.3); Monocytes % 9.5 %; Neutrophils # 10.7 K/mcL (1.6-8.9); Nucleated Red Blood Cells 0.1 /100 WBC (0); Platelet Count 191 K/mcL (140-400); Red Blood Count 3.32 M/mcL (4.19-5.50); Red Cell Distribution Width 13.8 % (11.5-14.5); Segmented Neutrophils % 80.1 %; White Blood Count 13.4 K/mcL (4.3-11.1)
[2021-11-27 04:57] LABS: Albumin 2.8 g/dL (3.5-5.7); Albumin/Globulin Ratio 0.8 (1.1-2.2); Bilirubin,Direct 1.4 mg/dL (0.0-0.2); Bilirubin,Indirect 0.6 mg/dL (0.0-1.0); Calcium 7.7 mg/dL (8.6-10.3); Globulin 3.3 g/dL (2.4-3.5); Magnesium 1.6 mg/dL (1.6-2.6); Phosphorous 2.5 mg/dL (2.7-4.5); Potassium 3.6 mEq/L (3.5-5.1); Total Protein 6.1 g/dL (6.4-8.9)
[2021-11-27 05:02] LABS: Amylase 45 Units/L (29-103); Lipase 173 Units/L (11-82)
[2021-11-27] MEDS: *HR* Heparin 5,000 UNIT/ML VIAL SQ SCH ×3 (05:30→22:06)
[2021-11-27] MEDS ORDERED: Potassium Phosphate 44 MEQ in 0.9 % Sodium Chloride 250 ML IVPB PRN (06:13)
[2021-11-27] MEDS: FentaNYL (PF) 1,000 MCG/100 ML IV.SOLN IVC SCH ×3 (06:42→19:20)
[2021-11-27] MEDS: Calcium Gluconate 1gm/50mL 1 GM/50 ML BAG IVPB PRN ×2 (06:42→15:15)
[2021-11-27] MEDS: Budesonide/Formoterol 160/4.5 1 PUFF INH IH SCH ×2 (08:04→20:12)
[2021-11-27] MEDS: Loratadine 10 MG TABLET PO SCH (08:25)
[2021-11-27] MEDS: Cholecalciferol (D-3) 1,000 UNIT (25MCG) TABLET PO SCH (08:25)
[2021-11-27] MEDS: Chlorhexidine Rinse 15 ML MOUTHWASH MM SCH ×2 (08:25→20:13)
[2021-11-27] MEDS: Nicotine 21 MG PATCH.TD24 TD SCH (08:25)
[2021-11-27] MEDS: ARIPiprazole 10 MG TABLET GTUBE SCH (08:25)
[2021-11-27] MEDS: Thiamine (B-1) 100 MG TABLET PO SCH ×2 (08:25→20:13)
[2021-11-27] MEDS: Pantoprazole 40 MG VIAL IVP SCH (08:25)
[2021-11-27] MEDS: Aspirin Enteric Coated 81 MG Tablet PO SCH (08:26)
[2021-11-27] MEDS: Norepinephrine 4 MG/254 ML IV.SOLN IVC SCH ×2 (08:27→20:14)
[2021-11-27] MEDS: Nystatin POWDER 30 GM BOTTLE TP SCH ×2 (08:27→20:13)
[2021-11-27] MEDS: Sodium Bicarbonate 150 MEQ in D5% in Water 1,000 ML IVC SCH (08:45)
[2021-11-27] MEDS: Dexmedetomidine HCl 400 MCG/100 ML MLS IVC SCH ×3 (11:35→22:03)
[2021-11-27 13:59] LABS: VBG HCO3 29 mEq/L (21-27); VBG PCO2 44 mmHg (41-51); VBG PH 7.43 pH Units (7.32-7.42); VBG PO2 72 mmHg (25-50)
[2021-11-27 14:19] LABS: Potassium 4.6 mEq/L (3.5-5.1)
[2021-11-27 14:20] LABS: Alanine Aminotransferase 24 Units/L (7-52); Albumin 2.8 g/dL (3.5-5.7); Albumin/Globulin Ratio 0.8 (1.1-2.2); Alkaline Phosphatase 62 Units/L (34-104); Aspartate Amino Transferase 89 Units/L (13-39); BUN/Creatinine Ratio 22 (6-26); Bilirubin,Total 1.9 mg/dL (0.3-1.0); Blood Urea Nitrogen 29 mg/dL (6-20); Calcium 7.8 mg/dL (8.6-10.3); Carbon Dioxide 29 mEq/L (23-29); Chloride 99 mEq/L (98-107); Globulin 3.4 g/dL (2.4-3.5); Glucose 176 mg/dL (70-105); Magnesium 1.7 mg/dL (1.6-2.6); Osmolality,Calculated 296 (280-300); Sodium 138 mEq/L (136-145); Total Protein 6.2 g/dL (6.4-8.9); eGFR For African Americans > 60 (> 60); eGFR For Non-African Americans 55 (> 60)
[2021-11-27 22:24] LABS: VBG Ionized Calcium 1.06 mmol/L (1.15-1.35)
[2021-11-28] MEDS: FentaNYL (PF) 1,000 MCG/100 ML IV.SOLN IVC SCH ×3 (01:10→18:03)
[2021-11-28] MEDS: Dexmedetomidine HCl 400 MCG/100 ML MLS IVC SCH ×7 (01:42→21:47)
[2021-11-28] MEDS: Ipratropium/Albuterol Neb 3 ML IH SCH ×6 (03:31→23:45)
[2021-11-28 03:37] LABS: ABG Base Excess 5 mEq/L (-2 to 3); ABG HCO3 28 mEq/L (21-27); ABG Oxygen Saturation 93 % (95-98); ABG PCO2 36 mmHg (35-45); ABG PO2 60 mmHg (85-104); ABG TCO2 29 mEq/L (20-26); Blood Gas VT 500 cc
[2021-11-28] MEDS: Artificial Tears SOLN 15 ML BOTTLE BOTH EYES SCH ×6 (03:53→23:50)
[2021-11-28] MEDS: Meropenem 1,000 MG in Water for inj. (sterile) 20 ML IVP SCH (03:56)
[2021-11-28 04:38] LABS: Lambda Qnt Free Light Chains 51.42 mg/L (5.71-26.30)
[2021-11-28 04:58] LABS: VBG Ionized Calcium 1.08 mmol/L (1.15-1.35)
[2021-11-28 04:58] LABS: Basophils # 0.1 K/mcL (0.0-0.2); Basophils % 0.5 %; Eosinophils # 0.2 K/mcL (0.0-0.6); Eosinophils % 1.5 %; Hematocrit 34.4 % (37.5-50.1); Hemoglobin 11.6 g/dL (12.9-16.9); Immature Granulocytes % 0.9 % (0-4); Lymphocytes # 1.2 K/mcL (0.6-4.6); Lymphocytes % 9.3 %; Mean Corpuscular HGB Conc 33.7 g/dL (31.6-35.5); Mean Corpuscular Hemoglobin 32.3 pg (28.0-33.3); Mean Corpuscular Volume 95.8 fL (83.0-100.0); Mean Platelet Volume 10.1 fL (9.4-12.4); Monocytes # 1.2 K/mcL (0.0-1.3); Monocytes % 9.3 %; Nucleated Red Blood Cells 0.2 /100 WBC (0); Platelet Count 200 K/mcL (140-400); Red Blood Count 3.59 M/mcL (4.19-5.50); Red Cell Distribution Width 14.1 % (11.5-14.5); Segmented Neutrophils % 78.5 %; White Blood Count 12.8 K/mcL (4.3-11.1)
[2021-11-28] MEDS: *HR* Heparin 5,000 UNIT/ML VIAL SQ SCH ×3 (05:08→21:41)
[2021-11-28 05:14] LABS: Alanine Aminotransferase 25 Units/L (7-52); Albumin 2.8 g/dL (3.5-5.7); Albumin/Globulin Ratio 0.8 (1.1-2.2); Alkaline Phosphatase 71 Units/L (34-104); Aspartate Amino Transferase 80 Units/L (13-39); BUN/Creatinine Ratio 19 (6-26); Bilirubin,Total 1.9 mg/dL (0.3-1.0); Blood Urea Nitrogen 21 mg/dL (6-20); Calcium 8.4 mg/dL (8.6-10.3); Carbon Dioxide 30 mEq/L (23-29); Chloride 101 mEq/L (98-107); Globulin 3.6 g/dL (2.4-3.5); Glucose 160 mg/dL (70-105); Osmolality,Calculated 286 (280-300); Sodium 135 mEq/L (136-145); Total Protein 6.4 g/dL (6.4-8.9); eGFR For African Americans > 60 (> 60); eGFR For Non-African Americans > 60 (> 60)
[2021-11-28 05:15] LABS: Amylase 45 Units/L (29-103); Lipase 199 Units/L (11-82)
[2021-11-28 06:44] LABS: Bilirubin,Direct 1.4 mg/dL (0.0-0.2); Bilirubin,Indirect 0.5 mg/dL (0.0-1.0); Magnesium 1.9 mg/dL (1.6-2.6); Phosphorous 2.9 mg/dL (2.7-4.5)
[2021-11-28] MEDS: Aspirin Enteric Coated 81 MG Tablet PO SCH (07:43)
[2021-11-28] MEDS: Chlorhexidine Rinse 15 ML MOUTHWASH MM SCH ×2 (07:43→20:09)
[2021-11-28] MEDS: ARIPiprazole 10 MG TABLET GTUBE SCH (07:43)
[2021-11-28] MEDS: Cholecalciferol (D-3) 1,000 UNIT (25MCG) TABLET PO SCH (07:43)
[2021-11-28] MEDS: Thiamine (B-1) 100 MG TABLET PO SCH ×2 (07:43→20:09)
[2021-11-28] MEDS: Loratadine 10 MG TABLET PO SCH (07:44)
[2021-11-28] MEDS: Pantoprazole 40 MG VIAL IVP SCH (07:44)
[2021-11-28] MEDS: Nicotine 21 MG PATCH.TD24 TD SCH (07:45)
[2021-11-28] MEDS: Nystatin POWDER 30 GM BOTTLE TP SCH ×2 (07:45→20:09)
[2021-11-28] MEDS: Budesonide/Formoterol 160/4.5 1 PUFF INH IH SCH ×2 (07:55→20:22)
[2021-11-28] MEDS: Calcium Gluconate 1gm/50mL 1 GM/50 ML BAG IVPB PRN (09:23)
[2021-11-28] MEDS: Meropenem 1,000 MG in 0.9 % Sodium Chloride Mini Bag 100 ML IVPB SCH ×2 (12:40→20:08)
[2021-11-28] MEDS: Norepinephrine 4 MG/254 ML IV.SOLN IVC SCH ×2 (20:07→23:54)
[2021-11-28 22:25] LABS: Alanine Aminotransferase 24 Units/L (7-52); Albumin 2.8 g/dL (3.5-5.7); Albumin/Globulin Ratio 0.8 (1.1-2.2); Alkaline Phosphatase 72 Units/L (34-104); Aspartate Amino Transferase 67 Units/L (13-39); BUN/Creatinine Ratio 19 (6-26); Bilirubin,Total 1.9 mg/dL (0.3-1.0); Blood Urea Nitrogen 17 mg/dL (6-20); Calcium 8.9 mg/dL (8.6-10.3); Carbon Dioxide 29 mEq/L (23-29); Chloride 100 mEq/L (98-107); Globulin 3.6 g/dL (2.4-3.5); Glucose 189 mg/dL (70-105); Osmolality,Calculated 285 (280-300); Potassium 4.5 mEq/L (3.5-5.1); Sodium 134 mEq/L (136-145); Total Protein 6.4 g/dL (6.4-8.9); eGFR For African Americans > 60 (> 60); eGFR For Non-African Americans > 60 (> 60)
[2021-11-28 23:22] LABS: Alpha 2 Globulin (PEP) 1.03 g/dL (0.48-1.05); Beta Globulin (PEP) 0.84 g/dL (0.48-1.10)
[2021-11-29] MEDS: FentaNYL (PF) 1,000 MCG/100 ML IV.SOLN IVC SCH ×2 (00:12→06:03)
[2021-11-29] MEDS: Dexmedetomidine HCl 400 MCG/100 ML MLS IVC SCH ×8 (00:38→22:41)
[2021-11-29] MEDS: Ipratropium/Albuterol Neb 3 ML IH SCH ×6 (02:45→23:01)
[2021-11-29 03:43] LABS: ABG Base Excess 4 mEq/L (-2 to 3); ABG HCO3 30 mEq/L (21-27); ABG Oxygen Saturation 94 % (95-98); ABG PCO2 51 mmHg (35-45); ABG PH 7.38 pH Units (7.32-7.45); ABG PO2 75 mmHg (85-104); ABG TCO2 32 mEq/L (20-26); Blood Gas Modality ASSIST CONTROL; Blood Gas VT 440 cc
[2021-11-29] MEDS: Meropenem 1,000 MG in 0.9 % Sodium Chloride Mini Bag 100 ML IVPB SCH ×3 (04:03→19:49)
[2021-11-29] MEDS: Artificial Tears SOLN 15 ML BOTTLE BOTH EYES SCH ×5 (04:04→19:49)
[2021-11-29 04:23] LABS: VBG Ionized Calcium 1.22 mmol/L (1.15-1.35)
[2021-11-29 04:50] LABS: Basophils # 0.1 K/mcL (0.0-0.2); Basophils % 0.5 %; Eosinophils # 0.3 K/mcL (0.0-0.6); Eosinophils % 2.1 %; Hematocrit 35.5 % (37.5-50.1); Hemoglobin 11.7 g/dL (12.9-16.9); Immature Granulocytes % 0.8 % (0-4); Lymphocytes # 1.1 K/mcL (0.6-4.6); Lymphocytes % 8.3 %; Mean Platelet Volume 10.6 fL (9.4-12.4); Monocytes # 0.9 K/mcL (0.0-1.3); Monocytes % 6.8 %; Neutrophils # 10.5 K/mcL (1.6-8.9); Platelet Count 203 K/mcL (140-400); Red Blood Count 3.66 M/mcL (4.19-5.50); Red Cell Distribution Width 14.1 % (11.5-14.5); Segmented Neutrophils % 81.5 %; White Blood Count 12.8 K/mcL (4.3-11.1)
[2021-11-29 05:02] LABS: Albumin 2.7 g/dL (3.5-5.7); Albumin/Globulin Ratio 0.7 (1.1-2.2); Bilirubin,Direct 1.2 mg/dL (0.0-0.2); Bilirubin,Indirect 0.6 mg/dL (0.0-1.0); Bilirubin,Total 1.8 mg/dL (0.3-1.0); Globulin 3.7 g/dL (2.4-3.5); Phosphorous 3.6 mg/dL (2.7-4.5); Total Protein 6.4 g/dL (6.4-8.9)
[2021-11-29 05:03] LABS: BUN/Creatinine Ratio 17 (6-26); Blood Urea Nitrogen 15 mg/dL (6-20); Calcium 8.9 mg/dL (8.6-10.3); Carbon Dioxide 29 mEq/L (23-29); Chloride 99 mEq/L (98-107); Glucose 181 mg/dL (70-105); Osmolality,Calculated 279 (280-300); Potassium 4.4 mEq/L (3.5-5.1); Sodium 132 mEq/L (136-145); eGFR For African Americans > 60 (> 60); eGFR For Non-African Americans > 60 (> 60)
[2021-11-29 05:03] LABS: Amylase 35 Units/L (29-103); Lipase 181 Units/L (11-82)
[2021-11-29] MEDS: *HR* Heparin 5,000 UNIT/ML VIAL SQ SCH ×3 (05:39→22:41)
[2021-11-29] MEDS: Budesonide/Formoterol 160/4.5 1 PUFF INH IH SCH ×2 (07:09→19:25)
[2021-11-29] MEDS: ARIPiprazole 10 MG TABLET GTUBE SCH (07:48)
[2021-11-29] MEDS: Cholecalciferol (D-3) 1,000 UNIT (25MCG) TABLET PO SCH (07:48)
[2021-11-29] MEDS: Pantoprazole 40 MG VIAL IVP SCH (07:48)
[2021-11-29] MEDS: Thiamine (B-1) 100 MG TABLET PO SCH ×2 (07:48→20:00)
[2021-11-29] MEDS: Aspirin 81 MG TAB.CHEW GTUBE SCH (07:48)
[2021-11-29] MEDS: Chlorhexidine Rinse 15 ML MOUTHWASH MM SCH ×2 (07:48→19:49)
[2021-11-29] MEDS: Nicotine 21 MG PATCH.TD24 TD SCH (07:49)
[2021-11-29] MEDS: Nystatin POWDER 30 GM BOTTLE TP SCH ×2 (07:50→19:50)
[2021-11-29 11:00] LABS: IFE Reflexed NOT DONE
[2021-11-29] MEDS ORDERED: Furosemide 40 MG/4 ML VIAL IVP ONE (14:00)
[2021-11-29] MEDS ORDERED: *HR* Metoprolol 5 MG/5 ML VIAL IVP ONE ×2 (14:12→14:17)
[2021-11-29] MEDS: Norepinephrine 4 MG/254 ML IV.SOLN IVC SCH (18:50)
[2021-11-29] MEDS: Furosemide 40 MG/4 ML VIAL IVP SCH (19:49)
[2021-11-29] MEDS ORDERED: *HR* LORazepam 2 MG/ML VIAL IVP ONE (20:46)
[2021-11-29] MEDS ORDERED: *HR* LORazepam 2 MG/ML VIAL ONE (20:48)
[2021-11-29] MEDS ORDERED: *HR* LORazepam 2 MG/ML VIAL IVP PRN ×2 (22:20)
[2021-11-29] MEDS: *HR* LORazepam 2 MG/ML VIAL IVP PRN (22:42)
[2021-11-30] MEDS: Norepinephrine 4 MG/254 ML IV.SOLN IVC SCH (00:10)
[2021-11-30] MEDS: Artificial Tears SOLN 15 ML BOTTLE BOTH EYES SCH ×6 (00:10→19:57)
[2021-11-30] MEDS: *HR* LORazepam 2 MG/ML VIAL IVP PRN (00:36)
[2021-11-30] MEDS: Dexmedetomidine HCl 400 MCG/100 ML MLS IVC SCH ×6 (00:36→23:34)
[2021-11-30] MEDS: Ipratropium/Albuterol Neb 3 ML IH SCH ×5 (03:03→21:04)
[2021-11-30 03:37] LABS: Basophils # 0.1 K/mcL (0.0-0.2); Basophils % 0.4 %; Eosinophils % 0.1 %; Hematocrit 37.1 % (37.5-50.1); Hemoglobin 12.3 g/dL (12.9-16.9); Immature Granulocytes % 1.2 % (0-4); Lymphocytes % 5.8 %; Mean Corpuscular HGB Conc 33.2 g/dL (31.6-35.5); Mean Corpuscular Hemoglobin 31.6 pg (28.0-33.3); Mean Corpuscular Volume 95.4 fL (83.0-100.0); Mean Platelet Volume 10.2 fL (9.4-12.4); Monocytes # 1.5 K/mcL (0.0-1.3); Monocytes % 8.6 %; Neutrophils # 14.4 K/mcL (1.6-8.9); Nucleated Red Blood Cells 0.3 /100 WBC (0); Platelet Count 242 K/mcL (140-400); Red Blood Count 3.89 M/mcL (4.19-5.50); Red Cell Distribution Width 14.1 % (11.5-14.5); Segmented Neutrophils % 83.9 %; White Blood Count 17.1 K/mcL (4.3-11.1)
[2021-11-30 03:58] LABS: Albumin 2.9 g/dL (3.5-5.7); Albumin/Globulin Ratio 0.7 (1.1-2.2); BUN/Creatinine Ratio 19 (6-26); Bilirubin,Direct 1.6 mg/dL (0.0-0.2); Bilirubin,Indirect 0.7 mg/dL (0.0-1.0); Bilirubin,Total 2.3 mg/dL (0.3-1.0); Blood Urea Nitrogen 19 mg/dL (6-20); Calcium 8.9 mg/dL (8.6-10.3); Carbon Dioxide 26 mEq/L (23-29); Chloride 101 mEq/L (98-107); Globulin 3.9 g/dL (2.4-3.5); Glucose 156 mg/dL (70-105); Magnesium 1.4 mg/dL (1.6-2.6); Osmolality,Calculated 285 (280-300); Phosphorous 3.9 mg/dL (2.7-4.5); Potassium 4.5 mEq/L (3.5-5.1); Sodium 135 mEq/L (136-145); Total Protein 6.8 g/dL (6.4-8.9); eGFR For African Americans > 60 (> 60); eGFR For Non-African Americans > 60 (> 60)
[2021-11-30] MEDS: *HR* Heparin 5,000 UNIT/ML VIAL SQ SCH ×3 (04:58→21:07)
[2021-11-30] MEDS: Budesonide/Formoterol 160/4.5 1 PUFF INH IH SCH ×2 (07:13→21:04)
[2021-11-30] MEDS: Pantoprazole 40 MG VIAL IVP SCH (08:55)
[2021-11-30] MEDS: Furosemide 40 MG/4 ML VIAL IVP SCH ×2 (08:55→19:57)
[2021-11-30] MEDS: Nicotine 21 MG PATCH.TD24 TD SCH (08:55)
[2021-11-30] MEDS: Chlorhexidine Rinse 15 ML MOUTHWASH MM SCH ×2 (08:55→19:57)
[2021-11-30] MEDS: Nystatin POWDER 30 GM BOTTLE TP SCH ×2 (09:02→19:57)
[2021-11-30 09:24] LABS: Triglycerides 130 mg/dL (< 150)
[2021-11-30] MEDS ORDERED: CloNIDine Patch 0.1 MG PATCH (WEEKLY) TD SCH (11:00)
[2021-11-30] MEDS: Aspirin 81 MG TAB.CHEW GTUBE SCH (11:02)
[2021-11-30] MEDS: ARIPiprazole 10 MG TABLET GTUBE SCH (11:02)
[2021-11-30] MEDS: Thiamine (B-1) 100 MG TABLET PO SCH ×2 (11:02→19:57)
[2021-11-30] MEDS: Cholecalciferol (D-3) 1,000 UNIT (25MCG) TABLET PO SCH (11:02)
[2021-11-30] MEDS: *HR* Metoprolol 5 MG/5 ML VIAL IVP SCH ×2 (11:37→17:06)
[2021-11-30] MEDS ORDERED: Ondansetron 4 MG/2 ML VIAL ONE (18:24)
[2021-11-30] MEDS: Ondansetron 4 MG/2 ML VIAL IVP PRN (18:25)
[2021-11-30] MEDS ORDERED: *HR* Promethazine 25 MG/ML VIAL IM ONE (19:55)
[2021-11-30] MEDS ORDERED: *HR* Metoprolol 5 MG/5 ML VIAL IVP ONE (19:58)
[2021-11-30] MEDS: Acetaminophen 325 MG TABLET PO PRN (23:36)
[2021-12-01] MEDS: Artificial Tears SOLN 15 ML BOTTLE BOTH EYES SCH ×6 (00:09→19:26)
[2021-12-01] MEDS: *HR* Metoprolol 5 MG/5 ML VIAL IVP SCH ×7 (00:10→23:36)
[2021-12-01] MEDS: Ipratropium/Albuterol Neb 3 ML IH SCH ×7 (00:31→23:48)
[2021-12-01] MEDS: Dexmedetomidine HCl 400 MCG/100 ML MLS IVC SCH ×3 (03:50→06:40)
[2021-12-01] MEDS: *HR* LORazepam 2 MG/ML VIAL IVP PRN ×3 (03:50→22:17)
[2021-12-01 04:01] LABS: White Blood Count 16.3 K/mcL (4.3-11.1)
[2021-12-01 04:02] LABS: Basophils # 0.1 K/mcL (0.0-0.2); Basophils % 0.4 %; Eosinophils % 0.1 %; Hematocrit 36.9 % (37.5-50.1); Hemoglobin 12.5 g/dL (12.9-16.9); Immature Granulocytes % 1.1 % (0-4); Lymphocytes # 1.1 K/mcL (0.6-4.6); Lymphocytes % 6.7 %; Mean Corpuscular HGB Conc 33.9 g/dL (31.6-35.5); Mean Corpuscular Hemoglobin 32.5 pg (28.0-33.3); Mean Corpuscular Volume 95.8 fL (83.0-100.0); Mean Platelet Volume 10.5 fL (9.4-12.4); Monocytes # 1.6 K/mcL (0.0-1.3); Monocytes % 9.8 %; Neutrophils # 13.4 K/mcL (1.6-8.9); Nucleated Red Blood Cells 0.1 /100 WBC (0); Platelet Count 264 K/mcL (140-400); Red Blood Count 3.85 M/mcL (4.19-5.50); Red Cell Distribution Width 14.4 % (11.5-14.5); Segmented Neutrophils % 81.9 %
[2021-12-01 04:06] LABS: VBG Ionized Calcium 1.24 mmol/L (1.15-1.35)
[2021-12-01 04:18] LABS: BUN/Creatinine Ratio 31 (6-26); Blood Urea Nitrogen 34 mg/dL (6-20); Calcium 9.8 mg/dL (8.6-10.3); Carbon Dioxide 30 mEq/L (23-29); Chloride 97 mEq/L (98-107); Glucose 156 mg/dL (70-105); Osmolality,Calculated 293 (280-300); Potassium 4.3 mEq/L (3.5-5.1); Sodium 136 mEq/L (136-145); eGFR For African Americans > 60 (> 60); eGFR For Non-African Americans > 60 (> 60)
[2021-12-01 05:26] LABS: Phosphorous 4.7 mg/dL (2.7-4.5)
[2021-12-01] MEDS: *HR* Heparin 5,000 UNIT/ML VIAL SQ SCH ×2 (05:56→14:02)
[2021-12-01] MEDS: Budesonide/Formoterol 160/4.5 1 PUFF INH IH SCH ×2 (07:21→23:48)
[2021-12-01] MEDS: ARIPiprazole 10 MG TABLET GTUBE SCH (07:44)
[2021-12-01] MEDS: Pantoprazole 40 MG VIAL IVP SCH (07:44)
[2021-12-01] MEDS: Chlorhexidine Rinse 15 ML MOUTHWASH MM SCH ×2 (07:44→19:27)
[2021-12-01] MEDS: Aspirin 81 MG TAB.CHEW GTUBE SCH (07:44)
[2021-12-01] MEDS: Nicotine 21 MG PATCH.TD24 TD SCH (07:44)
[2021-12-01] MEDS: Cholecalciferol (D-3) 1,000 UNIT (25MCG) TABLET PO SCH (07:45)
[2021-12-01] MEDS: Nystatin POWDER 30 GM BOTTLE TP SCH ×2 (07:45→19:27)
[2021-12-01] MEDS: Thiamine (B-1) 100 MG TABLET PO SCH ×2 (07:45→19:28)
[2021-12-01] MEDS ORDERED: Furosemide 20 MG/2 ML VIAL IVP SCH (09:00)
[2021-12-01] MEDS ORDERED: E-Z-PAQUE (BARIUM SULF) SUSP 1 BOTTLE PO ONE (14:53)
[2021-12-01] MEDS ORDERED: E-Z-HD (BARIUM SULF) SUSPENSION PO ONE (14:53)
[2021-12-01] MEDS ORDERED: *HR* Heparin 5,000 UNIT/ML VIAL IVP PRN ×2 (16:31)
[2021-12-01] MEDS ORDERED: *HR* Heparin 5,000 UNIT/ML VIAL IVP ONE (16:31)
[2021-12-01] MEDS: DilTIAZem 50 MG in 0.9 % Sodium Chloride 40 ML IVC SCH ×2 (16:52→20:39)
[2021-12-01 17:01] LABS: Heparin anti-factor XA UFH < 0.04 IU/mL (0.30-0.70); INR 1.1
[2021-12-01] MEDS: Heparin 25,000UNIT/250ML 1/2NS 25,000 UNIT/250 ML IV.SOLN IVC SCH (17:03)
[2021-12-01] MEDS: Ondansetron 4 MG/2 ML VIAL IVP PRN ×2 (17:46→23:47)
[2021-12-01 17:59] LABS: Hematocrit 36.5 % (37.5-50.1); Hemoglobin 11.8 g/dL (12.9-16.9); Mean Corpuscular HGB Conc 32.3 g/dL (31.6-35.5); Mean Corpuscular Hemoglobin 31.4 pg (28.0-33.3); Mean Corpuscular Volume 97.1 fL (83.0-100.0); Mean Platelet Volume 10.3 fL (9.4-12.4); Platelet Count 269 K/mcL (140-400); Red Blood Count 3.76 M/mcL (4.19-5.50); Red Cell Distribution Width 14.4 % (11.5-14.5); White Blood Count 15.2 K/mcL (4.3-11.1)
[2021-12-01 18:23] LABS: BUN/Creatinine Ratio 37 (6-26); Blood Urea Nitrogen 41 mg/dL (6-20); Calcium 9.5 mg/dL (8.6-10.3); Carbon Dioxide 28 mEq/L (23-29); Chloride 102 mEq/L (98-107); Glucose 168 mg/dL (70-105); Magnesium 1.9 mg/dL (1.6-2.6); Osmolality,Calculated 290 (280-300); Phosphorous 4.8 mg/dL (2.7-4.5); Potassium 4.2 mEq/L (3.5-5.1); Sodium 133 mEq/L (136-145); eGFR For African Americans > 60 (> 60); eGFR For Non-African Americans > 60 (> 60)
[2021-12-01 18:34] LABS: Troponin I 0.09 ng/mL (< 0.04)
[2021-12-01] MEDS ORDERED: *HR* Digoxin 0.5 MG/2 ML AMPUL IVP STA (19:13)
[2021-12-02] MEDS: *HR* Metoprolol 5 MG/5 ML VIAL IVP SCH ×2 (01:00→05:52)
[2021-12-02] MEDS: Artificial Tears SOLN 15 ML BOTTLE BOTH EYES SCH ×3 (01:28→07:32)
[2021-12-02] MEDS: *HR* Digoxin 0.5 MG/2 ML AMPUL IVP SCH ×2 (02:47→06:29)
[2021-12-02] MEDS: *HR* LORazepam 2 MG/ML VIAL IVP PRN ×2 (03:43)
[2021-12-02] MEDS: Ipratropium/Albuterol Neb 3 ML IH SCH ×2 (04:06→07:22)
[2021-12-02 04:14] LABS: VBG Ionized Calcium 1.19 mmol/L (1.15-1.35)
[2021-12-02 04:16] LABS: Basophils # 0.1 K/mcL (0.0-0.2); Basophils % 0.5 %; Eosinophils # 0.1 K/mcL (0.0-0.6); Eosinophils % 0.4 %; Hematocrit 37.6 % (37.5-50.1); Immature Granulocytes % 1.5 % (0-4); Lymphocytes % 7.1 %; Mean Corpuscular HGB Conc 31.9 g/dL (31.6-35.5); Mean Corpuscular Hemoglobin 31.3 pg (28.0-33.3); Mean Corpuscular Volume 98.2 fL (83.0-100.0); Mean Platelet Volume 10.3 fL (9.4-12.4); Monocytes # 1.8 K/mcL (0.0-1.3); Monocytes % 13.1 %; Neutrophils # 10.8 K/mcL (1.6-8.9); Nucleated Red Blood Cells 0.1 /100 WBC (0); Platelet Count 293 K/mcL (140-400); Red Blood Count 3.83 M/mcL (4.19-5.50); Red Cell Distribution Width 14.5 % (11.5-14.5); Segmented Neutrophils % 77.4 %; White Blood Count 13.9 K/mcL (4.3-11.1)
[2021-12-02 04:37] LABS: Magnesium 2.1 mg/dL (1.6-2.6); Phosphorous 5.1 mg/dL (2.7-4.5); Troponin I 0.19 ng/mL (< 0.04)
[2021-12-02 05:01] LABS: ABG Base Excess 4 mEq/L (-2 to 3); ABG HCO3 30 mEq/L (21-27); ABG Oxygen Saturation 92 % (95-98); ABG PCO2 50 mmHg (35-45); ABG PH 7.39 pH Units (7.32-7.45); ABG PO2 67 mmHg (85-104); ABG TCO2 32 mEq/L (20-26)
[2021-12-02] MEDS: Budesonide/Formoterol 160/4.5 1 PUFF INH IH SCH ×2 (07:23→19:34)
[2021-12-02] MEDS ORDERED: Furosemide 40 MG/4 ML VIAL IVP ONE (07:34)
[2021-12-02] MEDS: ARIPiprazole 10 MG TABLET GTUBE SCH (08:42)
[2021-12-02] MEDS: Cholecalciferol (D-3) 1,000 UNIT (25MCG) TABLET PO SCH (08:43)
[2021-12-02] MEDS: Thiamine (B-1) 100 MG TABLET PO SCH ×2 (08:44→20:35)
[2021-12-02] MEDS: Aspirin 81 MG TAB.CHEW GTUBE SCH (08:45)
[2021-12-02] MEDS: Pantoprazole 40 MG VIAL IVP SCH (08:46)
[2021-12-02] MEDS: Nicotine 21 MG PATCH.TD24 TD SCH (08:46)
[2021-12-02] MEDS: Nystatin POWDER 30 GM BOTTLE TP SCH ×2 (08:46→23:36)
[2021-12-02] MEDS: Chlorhexidine Rinse 15 ML MOUTHWASH MM SCH ×2 (08:46→09:23)
[2021-12-02] MEDS: Heparin 25,000UNIT/250ML 1/2NS 25,000 UNIT/250 ML IV.SOLN IVC SCH ×2 (09:22→19:38)
[2021-12-02] MEDS ORDERED: *HR* Dextrose 50 % in Water (Syg) 50 ML SYRINGE IVP PRN ×2 (10:36→17:03)
[2021-12-02] MEDS ORDERED: E-Z-HD (BARIUM SULF) SUSPENSION PO ONE ×2 (10:36→17:03)
[2021-12-02] MEDS ORDERED: Artificial Tears SOLN 15 ML BOTTLE BOTH EYES PRN (10:36)
[2021-12-02] MEDS ORDERED: Dextrose Gel 15 GM/37.5 ML TUBE PO PRN ×4 (10:36→17:03)
[2021-12-02] MEDS ORDERED: Naloxone 0.4 MG/ML INJ IVP PRN ×2 (10:36→17:03)
[2021-12-02] MEDS ORDERED: Ondansetron 4 MG/2 ML VIAL IVP PRN ×2 (10:36→17:03)
[2021-12-02] MEDS ORDERED: *HR* LORazepam 2 MG/ML VIAL IVP PRN ×2 (10:36→17:03)
[2021-12-02] MEDS ORDERED: Albuterol 2.5 MG/3 ML NEBULIZER IH PRN (10:36)
[2021-12-02] MEDS ORDERED: Acetaminophen 325 MG TABLET PO PRN ×2 (10:36→17:03)
[2021-12-02] MEDS ORDERED: E-Z-PAQUE (BARIUM SULF) SUSP 1 BOTTLE PO ONE ×2 (10:36→17:03)
[2021-12-02] MEDS ORDERED: D5% in Water 1,000 ML IVC PRN ×2 (10:36→17:03)
[2021-12-02] MEDS ORDERED: Potassium Phosphate 44 MEQ in 0.9 % Sodium Chloride 250 ML IVPB PRN ×2 (10:36→17:03)
[2021-12-02] MEDS ORDERED: *HR* Heparin 5,000 UNIT/ML VIAL IVP PRN ×3 (10:36→17:03)
[2021-12-02] MEDS ORDERED: Heparin 25,000UNIT/250ML 1/2NS 25,000 UNIT/250 ML IV.SOLN IVC SCH (10:36)
[2021-12-02] MEDS ORDERED: Calcium Gluconate 1gm/50mL 1 GM/50 ML BAG IVPB PRN (10:36)
[2021-12-02] MEDS ORDERED: Amiodarone Premix 150 MG/100 ML BAG IVPB ONE (11:35)
[2021-12-02] MEDS ORDERED: Amiodarone Premix 360 MG/200 ML BAG IVC ONE (11:35)
[2021-12-02] MEDS: Levalbuterol Neb 1.25 MG/3 ML IH SCH ×4 (11:36→23:11)
[2021-12-02] MEDS ORDERED: Perflutren Lipid Microsphere 1.3 ML in 0.9 % Sodium Chloride 8.7 ML IVP PRN (11:55)
[2021-12-02] MEDS ORDERED: *HR* Metoprolol 5 MG/5 ML VIAL IVP SCH (12:00)
[2021-12-02] MEDS ORDERED: Artificial Tears SOLN 15 ML BOTTLE BOTH EYES SCH (12:00)
[2021-12-02] MEDS ORDERED: CloNIDine Patch 0.1 MG PATCH (WEEKLY) TD SCH (12:00)
[2021-12-02] MEDS ORDERED: Ipratropium/Albuterol Neb 3 ML IH SCH (12:00)
[2021-12-02] MEDS ORDERED: *HR* Digoxin 0.5 MG/2 ML AMPUL IVP SCH (13:45)
[2021-12-02] MEDS ORDERED: Metoprolol XL (24 HR) Succ 50 MG TAB.ER.24H PO SCH ×2 (15:00)
[2021-12-02] MEDS ORDERED: Amiodarone Premix 360 MG/200 ML BAG IVC SCH ×2 (17:35)
[2021-12-02] MEDS ORDERED: *HR* Digoxin 0.125 MG TABLET PO SCH (19:15)
[2021-12-02] MEDS: Metoprolol XL (24 HR) Succ 50 MG TAB.ER.24H PO SCH (20:35)
[2021-12-02] MEDS ORDERED: Nystatin POWDER 30 GM BOTTLE TP SCH (21:00)
[2021-12-02] MEDS ORDERED: Chlorhexidine Rinse 15 ML MOUTHWASH MM SCH (21:00)
[2021-12-02] MEDS ORDERED: Thiamine (B-1) 100 MG TABLET PO SCH (21:00)
[2021-12-02] MEDS ORDERED: Budesonide/Formoterol 160/4.5 1 PUFF INH IH SCH (22:00)
[2021-12-03 01:14] LABS: Basophils # 0.1 K/mcL (0.0-0.2); Basophils % 0.7 %; Eosinophils # 0.2 K/mcL (0.0-0.6); Eosinophils % 1.3 %; Hematocrit 35.7 % (37.5-50.1); Hemoglobin 11.3 g/dL (12.9-16.9); Immature Granulocytes % 1.8 % (0-4); Lymphocytes # 1.5 K/mcL (0.6-4.6); Lymphocytes % 10.8 %; Mean Corpuscular HGB Conc 31.7 g/dL (31.6-35.5); Mean Corpuscular Hemoglobin 31.3 pg (28.0-33.3); Mean Corpuscular Volume 98.9 fL (83.0-100.0); Mean Platelet Volume 10.7 fL (9.4-12.4); Monocytes # 1.9 K/mcL (0.0-1.3); Monocytes % 13.8 %; Neutrophils # 9.7 K/mcL (1.6-8.9); Nucleated Red Blood Cells 0.1 /100 WBC (0); Platelet Count 303 K/mcL (140-400); Red Blood Count 3.61 M/mcL (4.19-5.50); Red Cell Distribution Width 14.3 % (11.5-14.5); Segmented Neutrophils % 71.6 %; White Blood Count 13.6 K/mcL (4.3-11.1)
[2021-12-03] MEDS: Levalbuterol Neb 1.25 MG/3 ML IH SCH ×6 (03:30→23:39)
[2021-12-03] MEDS ORDERED: *HR* Metoprolol 5 MG/5 ML VIAL IVP ONE (05:42)
[2021-12-03 06:11] LABS: Calcium 9.5 mg/dL (8.6-10.3); Potassium 4.3 mEq/L (3.5-5.1)
[2021-12-03] MEDS: Budesonide/Formoterol 160/4.5 1 PUFF INH IH SCH ×2 (07:31→20:27)
[2021-12-03] MEDS ORDERED: methylPREDNISolone 125 MG/2 ML VIAL IVP STA (08:21)
[2021-12-03] MEDS: ARIPiprazole 10 MG TABLET PO SCH (08:22)
[2021-12-03] MEDS: Aspirin 81 MG TAB.CHEW PO SCH (08:22)
[2021-12-03] MEDS: Cholecalciferol (D-3) 1,000 UNIT (25MCG) TABLET PO SCH (08:22)
[2021-12-03] MEDS: Thiamine (B-1) 100 MG TABLET PO SCH ×2 (08:22→20:54)
[2021-12-03] MEDS: Nystatin POWDER 30 GM BOTTLE TP SCH ×2 (08:23→20:54)
[2021-12-03] MEDS: *HR* Digoxin 0.5 MG/2 ML AMPUL IVP SCH (08:23)
[2021-12-03] MEDS: Metoprolol XL (24 HR) Succ 50 MG TAB.ER.24H PO SCH ×4 (08:24→20:54)
[2021-12-03] MEDS ORDERED: ARIPiprazole 10 MG TABLET GTUBE SCH ×2 (09:00)
[2021-12-03] MEDS ORDERED: Nicotine 21 MG PATCH.TD24 TD SCH ×2 (09:00)
[2021-12-03] MEDS ORDERED: Pantoprazole 40 MG VIAL IVP SCH ×2 (09:00)
[2021-12-03] MEDS ORDERED: Aspirin 81 MG TAB.CHEW GTUBE SCH ×2 (09:00)
[2021-12-03] MEDS ORDERED: Cholecalciferol (D-3) 1,000 UNIT (25MCG) TABLET PO SCH (09:00)
[2021-12-03] MEDS: *HR* Heparin 5,000 UNIT/ML VIAL IVP PRN (16:43)
[2021-12-03] MEDS ORDERED: Furosemide 40 MG/4 ML VIAL IVP ONE (16:44)
[2021-12-03] MEDS: *HR* Metoprolol 5 MG/5 ML VIAL IVP PRN (17:54)
[2021-12-03] MEDS: predniSONE 20 MG TABLET PO SCH (17:54)
[2021-12-03 18:05] LABS: Bilirubin,Urine Negative (Negative); Blood,Urine Small (Negative); Clarity,Urine Clear (Clear); Color,Urine Light-Yellow (Yellow); Glucose,Urine (UA) Normal (Normal); Ketones,Urine Negative (Negative); Leukocyte Esterase,Urine Negative (Negative); Nitrite,Urine Negative (Negative); Protein,Urine Trace mg/dL (Neg-Trace); Specific Gravity,Urine 1.022 (1.010-1.025); Squamous Epithelial Cell,Urine Few per hpf (None-Few); Urobilinogen,Urine Normal (Normal)
[2021-12-04] MEDS: Heparin 25,000UNIT/250ML 1/2NS 25,000 UNIT/250 ML IV.SOLN IVC SCH ×2 (01:13→12:09)
[2021-12-04] MEDS: Levalbuterol Neb 1.25 MG/3 ML IH SCH ×6 (04:01→23:48)
[2021-12-04] MEDS: *HR* Metoprolol 5 MG/5 ML VIAL IVP PRN ×2 (06:05→12:10)
[2021-12-04 06:10] LABS: Basophils % 0.2 %; Hematocrit 34.5 % (37.5-50.1); Hemoglobin 11.3 g/dL (12.9-16.9); Immature Granulocytes % 1.6 % (0-4); Lymphocytes # 0.9 K/mcL (0.6-4.6); Mean Corpuscular HGB Conc 32.8 g/dL (31.6-35.5); Mean Corpuscular Volume 97.7 fL (83.0-100.0); Mean Platelet Volume 10.8 fL (9.4-12.4); Monocytes % 5.6 %; Neutrophils # 14.9 K/mcL (1.6-8.9); Platelet Count 332 K/mcL (140-400); Red Blood Count 3.53 M/mcL (4.19-5.50); Red Cell Distribution Width 13.9 % (11.5-14.5); Segmented Neutrophils % 87.6 %
[2021-12-04 06:33] LABS: Digoxin 1.2 ng/mL (0.8-2.0)
[2021-12-04 06:41] LABS: Thyroid Stimulating Hormone 0.767 mcIU/mL (0.340-5.600)
[2021-12-04] MEDS: Aspirin 81 MG TAB.CHEW PO SCH (08:01)
[2021-12-04] MEDS: Metoprolol XL (24 HR) Succ 50 MG TAB.ER.24H PO SCH ×3 (08:02→20:47)
[2021-12-04] MEDS: Thiamine (B-1) 100 MG TABLET PO SCH ×2 (08:02→20:46)
[2021-12-04] MEDS: Cholecalciferol (D-3) 1,000 UNIT (25MCG) TABLET PO SCH (08:02)
[2021-12-04] MEDS: ARIPiprazole 10 MG TABLET PO SCH (08:02)
[2021-12-04] MEDS: predniSONE 20 MG TABLET PO SCH (08:02)
[2021-12-04] MEDS: *HR* Digoxin 0.5 MG/2 ML AMPUL IVP SCH (08:03)
[2021-12-04] MEDS: Nystatin POWDER 30 GM BOTTLE TP SCH ×2 (08:03→20:46)
[2021-12-04] MEDS: Budesonide/Formoterol 160/4.5 1 PUFF INH IH SCH ×2 (08:30→20:41)
[2021-12-04 10:11] LABS: Estimated Average Glucose 151 mg/dl; Hemoglobin A1C 6.9 %
[2021-12-04] MEDS ORDERED: Saliva Stimulant 44.3ml BOTTLE PO ONE (10:37)
[2021-12-04] MEDS ORDERED: Chloraseptic Spray 177 ML BOTTLE MM PRN (10:37)
[2021-12-04 12:06] LABS: BUN/Creatinine Ratio 49 (6-26); Blood Urea Nitrogen 59 mg/dL (6-20); Calcium 9.4 mg/dL (8.6-10.3); Carbon Dioxide 25 mEq/L (23-29); Chloride 100 mEq/L (98-107); Glucose 234 mg/dL (70-105); Osmolality,Calculated 306 (280-300); Potassium 4.5 mEq/L (3.5-5.1); Sodium 136 mEq/L (136-145); eGFR For African Americans > 60 (> 60); eGFR For Non-African Americans > 60 (> 60)
[2021-12-04] MEDS: Bumetanide 1 MG/4 ML VIAL IVP SCH ×2 (12:30→18:17)
[2021-12-05] MEDS: Levalbuterol Neb 1.25 MG/3 ML IH SCH ×6 (03:38→23:30)
[2021-12-05] MEDS: Bumetanide 1 MG/4 ML VIAL IVP SCH ×2 (05:51→17:39)
[2021-12-05] MEDS: Heparin 25,000UNIT/250ML 1/2NS 25,000 UNIT/250 ML IV.SOLN IVC SCH ×3 (06:59→17:40)
[2021-12-05] MEDS: Budesonide/Formoterol 160/4.5 1 PUFF INH IH SCH ×2 (07:41→19:33)
[2021-12-05] MEDS: ARIPiprazole 10 MG TABLET PO SCH (07:53)
[2021-12-05] MEDS: Metoprolol XL (24 HR) Succ 50 MG TAB.ER.24H PO SCH ×2 (07:53→21:06)
[2021-12-05] MEDS: Thiamine (B-1) 100 MG TABLET PO SCH ×2 (07:53→21:07)
[2021-12-05] MEDS: predniSONE 20 MG TABLET PO SCH (07:53)
[2021-12-05] MEDS: Cholecalciferol (D-3) 1,000 UNIT (25MCG) TABLET PO SCH (07:53)
[2021-12-05] MEDS: Aspirin 81 MG TAB.CHEW PO SCH (07:53)
[2021-12-05] MEDS: Nystatin POWDER 30 GM BOTTLE TP SCH ×2 (07:56→21:09)
[2021-12-05] MEDS: *HR* Digoxin 0.5 MG/2 ML AMPUL IVP SCH (07:56)
[2021-12-05 09:18] LABS: Basophils % 0.1 %; Eosinophils % 0.1 %; Hematocrit 38.7 % (37.5-50.1); Hemoglobin 12.2 g/dL (12.9-16.9); Immature Granulocytes % 1.2 % (0-4); Lymphocytes % 12.1 %; Mean Corpuscular HGB Conc 31.5 g/dL (31.6-35.5); Mean Corpuscular Hemoglobin 31.4 pg (28.0-33.3); Mean Corpuscular Volume 99.7 fL (83.0-100.0); Mean Platelet Volume 10.8 fL (9.4-12.4); Monocytes # 0.9 K/mcL (0.0-1.3); Monocytes % 5.1 %; Neutrophils # 13.6 K/mcL (1.6-8.9); Platelet Count 372 K/mcL (140-400); Red Blood Count 3.88 M/mcL (4.19-5.50); Red Cell Distribution Width 13.7 % (11.5-14.5); Segmented Neutrophils % 81.4 %; White Blood Count 16.8 K/mcL (4.3-11.1)
[2021-12-05 09:40] LABS: BUN/Creatinine Ratio 36 (6-26); Blood Urea Nitrogen 42 mg/dL (6-20); Carbon Dioxide 31 mEq/L (23-29); Chloride 96 mEq/L (98-107); Glucose 176 mg/dL (70-105); Osmolality,Calculated 297 (280-300); Potassium 3.7 mEq/L (3.5-5.1); Sodium 136 mEq/L (136-145); eGFR For African Americans > 60 (> 60); eGFR For Non-African Americans > 60 (> 60)
[2021-12-05] MEDS ORDERED: Metoprolol XL (24 HR) Succ 50 MG TAB.ER.24H PO ONE (12:00)
[2021-12-05] MEDS: Loratadine 10 MG TABLET PO SCH (14:05)
[2021-12-05] MEDS: Insulin DETEMIR 100 UNIT/ML X5UNITS SUBQ SCH (21:08)
[2021-12-05] MEDS: *HR* Heparin 5,000 UNIT/ML VIAL IVP PRN (21:52)
[2021-12-06] MEDS ORDERED: Melatonin 3 MG TABLET PO PRN (01:26)
[2021-12-06] MEDS: Heparin 25,000UNIT/250ML 1/2NS 25,000 UNIT/250 ML IV.SOLN IVC SCH (02:07)
[2021-12-06 02:56] LABS: Hematocrit 34.3 % (37.5-50.1); Mean Corpuscular HGB Conc 32.1 g/dL (31.6-35.5); Mean Corpuscular Hemoglobin 31.1 pg (28.0-33.3); Mean Corpuscular Volume 96.9 fL (83.0-100.0); Mean Platelet Volume 10.9 fL (9.4-12.4); Platelet Count 333 K/mcL (140-400); Red Blood Count 3.54 M/mcL (4.19-5.50); Red Cell Distribution Width 13.4 % (11.5-14.5); White Blood Count 15.4 K/mcL (4.3-11.1)
[2021-12-06 03:18] LABS: BUN/Creatinine Ratio 38 (6-26); Blood Urea Nitrogen 35 mg/dL (6-20); Calcium 9.7 mg/dL (8.6-10.3); Carbon Dioxide 29 mEq/L (23-29); Chloride 98 mEq/L (98-107); Glucose 133 mg/dL (70-105); Osmolality,Calculated 292 (280-300); Potassium 3.7 mEq/L (3.5-5.1); Sodium 136 mEq/L (136-145); eGFR For African Americans > 60 (> 60); eGFR For Non-African Americans > 60 (> 60)
[2021-12-06] MEDS: Levalbuterol Neb 1.25 MG/3 ML IH SCH ×6 (03:33→23:40)
[2021-12-06] MEDS: Bumetanide 1 MG/4 ML VIAL IVP SCH (06:37)
[2021-12-06] MEDS: Budesonide/Formoterol 160/4.5 1 PUFF INH IH SCH ×2 (07:19→20:21)
[2021-12-06] MEDS: ARIPiprazole 10 MG TABLET PO SCH (07:36)
[2021-12-06] MEDS: Aspirin 81 MG TAB.CHEW PO SCH (07:36)
[2021-12-06] MEDS: Thiamine (B-1) 100 MG TABLET PO SCH ×2 (07:36→21:49)
[2021-12-06] MEDS: Loratadine 10 MG TABLET PO SCH (07:36)
[2021-12-06] MEDS: predniSONE 20 MG TABLET PO SCH (07:36)
[2021-12-06] MEDS: Cholecalciferol (D-3) 1,000 UNIT (25MCG) TABLET PO SCH (07:36)
[2021-12-06] MEDS: Metoprolol XL (24 HR) Succ 50 MG TAB.ER.24H PO SCH ×2 (07:37→21:49)
[2021-12-06] MEDS: Nystatin POWDER 30 GM BOTTLE TP SCH ×2 (07:37→21:50)
[2021-12-06] MEDS: *HR* Digoxin 0.5 MG/2 ML AMPUL IVP SCH (07:37)
[2021-12-06] MEDS ORDERED: *HR* Rivaroxaban 10 MG TABLET PO SCH (14:00)
[2021-12-06] MEDS: Insulin DETEMIR 100 UNIT/ML X5UNITS SUBQ SCH (21:48)
[2021-12-07 02:02] LABS: Hematocrit 32.4 % (37.5-50.1); Hemoglobin 11.1 g/dL (12.9-16.9); Mean Corpuscular HGB Conc 34.3 g/dL (31.6-35.5); Mean Corpuscular Hemoglobin 32.4 pg (28.0-33.3); Mean Corpuscular Volume 94.5 fL (83.0-100.0); Mean Platelet Volume 10.7 fL (9.4-12.4); Platelet Count 388 K/mcL (140-400); Red Blood Count 3.43 M/mcL (4.19-5.50); Red Cell Distribution Width 13.3 % (11.5-14.5); White Blood Count 14.6 K/mcL (4.3-11.1)
[2021-12-07 02:14] LABS: INR 1.8; Prothrombin Time 19.9 Seconds (9.4-12.1)
[2021-12-07 02:22] LABS: BUN/Creatinine Ratio 31 (6-26); Blood Urea Nitrogen 26 mg/dL (6-20); Calcium 9.4 mg/dL (8.6-10.3); Carbon Dioxide 29 mEq/L (23-29); Chloride 101 mEq/L (98-107); Glucose 140 mg/dL (70-105); Osmolality,Calculated 293 (280-300); Potassium 3.8 mEq/L (3.5-5.1); Sodium 138 mEq/L (136-145); eGFR For African Americans > 60 (> 60); eGFR For Non-African Americans > 60 (> 60)
[2021-12-07] MEDS: Levalbuterol Neb 1.25 MG/3 ML IH SCH ×3 (03:21→11:53)
[2021-12-07] MEDS ORDERED: *HR* Enoxaparin 40 MG/0.4 ML SYRINGE SQ SCH (06:00)
[2021-12-07] MEDS: Budesonide/Formoterol 160/4.5 1 PUFF INH IH SCH (07:36)
[2021-12-07 07:56] VITALS: BP 137/88; PULSE 103; TEMP 98.1
[2021-12-07] MEDS: predniSONE 20 MG TABLET PO SCH (08:36)
[2021-12-07] MEDS: Aspirin 81 MG TAB.CHEW PO SCH (08:36)
[2021-12-07] MEDS: Loratadine 10 MG TABLET PO SCH (08:36)
[2021-12-07] MEDS: Cholecalciferol (D-3) 1,000 UNIT (25MCG) TABLET PO SCH (08:36)
[2021-12-07] MEDS: Metoprolol XL (24 HR) Succ 50 MG TAB.ER.24H PO SCH (08:36)
[2021-12-07] MEDS: ARIPiprazole 10 MG TABLET PO SCH (08:37)
[2021-12-07] MEDS: Thiamine (B-1) 100 MG TABLET PO SCH (08:37)
[2021-12-07] MEDS: Nystatin POWDER 30 GM BOTTLE TP SCH (08:38)
[2021-12-07] MEDS ORDERED: Bumetanide 1 MG/4 ML VIAL IVP SCH (09:00)
[2021-12-07] MEDS ORDERED: CloNIDine Patch 0.1 MG PATCH (WEEKLY) TD SCH (09:00)
[2021-12-07 10:04] VITALS: O2SAT 96
[2021-12-07] MEDS ORDERED: DilTIAZem CD (24hr) 240 MG CAP.ER.24H PO SCH (12:00)
[2021-12-07] MEDS ORDERED: *HR* Warfarin 5 MG TABLET PO ONE (18:00)
[2021-12-07] MEDS ORDERED: Warfarin perPT PO SCH (18:00)
== END 2021-12-07 11:58 | disposition home health service (06) | DRG 438 ==
LOC: 3ANU 07:46 → EMEROOARM 07:46 → SUATTDRO 12:29 → 3ANU 13:25 → 3NENU 11-25 15:30 → SUATTDRO 11-25 17:52 → ICNU 11-25 22:31 → 2NNU 12-02 18:35 → 2ANU 12-06 09:32
PROVIDERS: ADMIT Family Medicine; ATTEND Internal Medicine